=== PATIENT | male | born 1965 | race Caucasian/White ===

== ENCOUNTER 2024-03-28 22:30 | Emergency (ER) | payer OTHER, SELFPAY ==
[2024-03-28 22:33] VITALS: BP 190/107
[2024-03-28 22:54] LABS: % Basophils 0.2 % (0-2); % Eosinophils 0.3 % (0-6); % Immature Granulocytes 0.2 % (0-0.5); % Lymphocytes 30.7 % (20.5-51.1); % Monocytes 9.2 % (1.7-9.3); % Neutrophils 59.4 % (42.2-75.2); Absolute Lymphocytes 1.8 10^3/uL (1.2-3.4); Absolute Monocytes 0.5 10^3/uL (0.1-0.6); Absolute Neutrophils 3.4 10^3/uL (1.4-6.5); Hematocrit 41.3 % (39.0-52.0); Mean Corp Hgb Conc. 33.9 g/dL (33.0-37.0); Mean Corpuscular Hgb 29.5 pg (27.0-31.0); Mean Corpuscular Volume 86.9 fL (80.0-94.0); Mean Platelet Volume 8.7 fL (7.4-10.4); Nucleated Red Blood Cells % 0 % (-); Platelet Count 287 10^3/uL (130-400); Red Blood Cell Count 4.75 10^6/uL (4.70-6.10); Red Cell Dist. Width 12.7 % (11.5-14.5); White Blood Cell Count 5.7 10^3/uL (4.8-10.8)
[2024-03-28 23:11] LABS: ALT (SGPT) 29 U/L (0-50); AST (SGOT) 32 U/L (17-59); Albumin 4.2 g/dl (3.5-5.0); Alkaline Phosphatase 81 U/L (38-126); Blood Urea Nitrogen 19 mg/dl (9-20); Calcium 8.9 mg/dl (8.4-10.2); Carbon Dioxide 27 mmol/L (22-30); Chloride 98 mmol/L (98-107); Glucose 133 mg/dl (70-99); Lipase 71 U/L (23-300); Sodium 132 mmol/L (135-145); Total Bilirubin 0.5 mg/dl (0.2-1.3); Total Protein 7.4 g/dl (6.3-8.2); eGFR > 60.00
--- NOTE | 2024-03-29 03:16 | ED.GENMED ---
History of Present Illness
General
Chief Complaint: Abdominal Pain
Source: patient
Exam Limitations: none
Time Seen by Provider: 03/29/24 02:56
Nursing documentation reviewed up to this point in time: agreed with
History of Present Illness
History of Present Illness:
59-year-old male with a past medical history as noted presents to the ER for evaluation of groin pain. Patient says he has had a mild cough for about 2 weeks. Tonight he had a coughing fit and he felt something pop in his groin and he had pain
immediately. He says he has a palpable mass there. Came to the ER for evaluation. He says he has had an umbilical hernia in the past that was repaired but has never had a hernia in this area. He denies any nausea, vomiting. Regarding his cough
he reports it has been ongoing for 2 weeks mild and nonproductive. No associated shortness of breath. No chest pain. No fevers. No other complaints.
Review of Systems
Review of Systems
All Other Systems: ROS reviewed and negative except as documented in HPI and ROS
Constitutional: Denies fever
Respiratory: Reports cough; Denies trouble breathing
Cardiac: Denies chest pain
ABD/GI: Reports abdominal pain; Denies nausea or vomiting
Musculoskeletal: Denies neck pain or back pain
Phy Exam
Physical Exam
Physical Exam:
General: Awake, alert, oriented x3; appears uncomfortable
Head: Normocephalic, atraumatic
Eyes: Conjunctiva normal
Throat: Airway intact, handling secretions
Neck: Trachea midline, no JVD
Lungs: Clear to auscultation bilaterally, no wheezing, rales, rhonchi
Heart: Regular rate and rhythm, no murmurs, gallops, or rubs
Abd: Soft, non distended, nontender; patient has left inguinal hernia soft but very tender; no induration or skin changes
Neuro: No gross deficits
Extremities: No edema in extremities, equal pulses in all extremities
Scores
Heart Failure Risk
Heart Failure Risk Score: Not Applicable
Heart Score for Chest Pain Patients
STEMI patient?: Not applicable
Withdrawal Assessment of Alcohol
Withdrawal Assessment Completed?: Not applicable
Course
Orders/Labs/Results
Orders:
Orders
03/28/24 22:45
Complete Blood Count/With Diff Urgent
Comprehensive Metabolic Panel Urgent
Lipase Urgent
03/29/24 03:12
HYDROmorphone [Dilaudid] 0.5 mg IV NOW STA
CR Chest - 2 Views Urgent
Comment:
Reason For Exam: cough
03/29/24 03:19
COVID-19 Antigen Urgent
Source: Nasal Swab
Influenza A+B Rapid Molecular Urgent
DIANE Source: Nasal Swab
Specimen Description:
Abnormal Lab Results
03/28/24
22:45
Sodium 132 L mmol/L
(135-145)
Glucose 133 H mg/dl
(70-99)
03/28/24 22:45
03/28/24 22:45
Vital Signs
Initial and Last Documented VS:
Initial Vital Signs
Temp Pulse Resp BP Pulse Ox
36.9 C 95 18 190/107 95
03/28/24 22:33 03/28/24 22:33 03/28/24 22:33 03/28/24 22:33 03/28/24 22:33
Last Documented Vital Signs
Temp Pulse Resp BP Pulse Ox
36.9 C 77 18 170/100 93
03/28/24 22:33 03/29/24 03:30 03/29/24 03:30 03/29/24 03:30 03/29/24 03:30
MDM/Problems Addressed
Differential Diagnosis Includes:
Abdominal/groin pain: Incarcerated hernia
Cough: Pneumonia, bronchitis, COPD
MDM/Problems Addressed:
59-year-old male presents for evaluation of groin pain after coughing with palpable mass in the left inguinal region. Hypertensive otherwise normal vitals. On exam he does have a hernia in the left inguinal region it is soft but tender to the
touch consistent with an incarcerated hernia. Did not tolerate bedside attempted reduction initially. Will treat with pain medication and apply ice pack and then attempt to reduce. He did have labs sent in triage including a CBC and a CMP which
were all unremarkable. Will check a chest x-ray to rule out pneumonia given his cough and swab for COVID and flu.
Hernia was reduced at bedside without issue after pain medication and application of an ice pack for a period of time. His symptoms completely resolved with hernia reduction. His COVID and flu swabs were negative. Chest x-ray reviewed by me
concerning for right lower lobe pneumonia. Plan to treat with antibiotics. Stable for discharge refer to surgery for outpatient follow-up on hernia. Patient comfortable with this plan. All questions answered.
Chronic conditions affecting care:
COPD
*Radiology
Radiology exam reviewed: preliminary read by ED provider
*Pulse Oximetry
Patient hypoxic: no
*Critical Care Note
Total Time (30-74mins, 75-104mins- exclusive of procedures): Not Applicable
Data Reviewed
Source: patient
ED Attending Note
-
Portions of this chart may have been created with voice recognition software.� Occasional wrong word or��sound alike� substitutions may have occurred due to the inherent limitations of voice recognition software.
Discharge Plan
Departure
Discharge Problem:
Inguinal hernia, Pneumonia
Instructions: Pneumonia in adults, Groin hernias
Prescriptions:
New
levofloxacin 750 mg tablet
750 mg PO DAILY Qty: 7 0RF
Interventions
Interventions:
*Risk Screen - Suicide Last Done: 03/28/24 22:33
*General Assessment Last Done: 03/28/24 22:33
*Neglect/Abuse Screening Last Done: 03/28/24 22:33
BJ-Xaxxzq-Fzwpltwibr Assessment Last Done: 03/29/24 03:30
Discharge Date and Time
Print Language: SLOVAK
[2024-03-29] MEDS: DILAUDID 0.5 MG IV (03:17)
[2024-03-29 03:30] VITALS: BP 170/100
[2024-03-29 04:25] LABS: COVID-19 Antigen Negative (Negative)
[2024-03-29] MEDS: LEVAQUIN 750 MG PO (04:52)
== END 2024-03-29 05:31 | disposition home or self-care (01) ==
LOC: EMR 22:30
PROVIDERS: EMERGENCY PHYSICIAN Emergency Medicine
DX: K40.90 Unilateral inguinal hernia, without obstruction or gangrene, not specified as recurrent (principal); J18.9 Pneumonia, unspecified organism; Z11.52 Encounter for screening for COVID-19
CPT/HCPCS: 99284; 96374; 71046; 80053; 83690; 85025; 87502; 87811

== ENCOUNTER 2024-04-16 17:30 | Day surgery (SDC) | payer OTHER, SELFPAY ==
[2024-04-16] VITALS (11 sets, daily range): BP systolic 126–178; BP diastolic 77–103; BMI 33.0
[2024-04-16 12:20] LABS: % Basophils 0.3 % (0-2); % Eosinophils 0.6 % (0-6); % Immature Granulocytes 0.4 % (0-0.5); % Lymphocytes 17.2 % (20.5-51.1); % Monocytes 6.6 % (1.7-9.3); % Neutrophils 74.9 % (42.2-75.2); Absolute Lymphocytes 1.2 10^3/uL (1.2-3.4); Absolute Monocytes 0.5 10^3/uL (0.1-0.6); Absolute Neutrophils 5.3 10^3/uL (1.4-6.5); Hemoglobin 14.7 g/dL (13.0-18.0); Mean Corp Hgb Conc. 34.2 g/dL (33.0-37.0); Mean Corpuscular Hgb 29.2 pg (27.0-31.0); Mean Corpuscular Volume 85.3 fL (80.0-94.0); Nucleated Red Blood Cells % 0 % (-); Platelet Count 339 10^3/uL (130-400); Red Blood Cell Count 5.04 10^6/uL (4.70-6.10); Red Cell Dist. Width 13.6 % (11.5-14.5); White Blood Cell Count 7.1 10^3/uL (4.8-10.8)
[2024-04-16 12:31] LABS: ALT (SGPT) 23 U/L (0-50); AST (SGOT) 25 U/L (17-59); Albumin 4.3 g/dl (3.5-5.0); Alkaline Phosphatase 96 U/L (38-126); Blood Urea Nitrogen 19 mg/dl (9-20); Calcium 9.5 mg/dl (8.4-10.2); Carbon Dioxide 23 mmol/L (22-30); Chloride 103 mmol/L (98-107); Glucose 110 mg/dl (70-99); Potassium 4.5 mmol/L (3.5-5.1); Sodium 136 mmol/L (135-145); Total Bilirubin 0.4 mg/dl (0.2-1.3); Total Protein 7.9 g/dl (6.3-8.2); eGFR > 60.00
--- NOTE | 2024-04-16 13:15 | ED.GENMED ---
History of Present Illness
General
Chief Complaint: Abdominal Pain
Source: patient and records
Exam Limitations: none
Time Seen by Provider: 04/16/24 13:02
History of Present Illness
History of Present Illness:
59yoM with a history of COPD and hypertension presenting via EMS for evaluation of left groin pain. Patient was seen in the ED on 03/29/2024 for a left inguinal hernia. Hernia was able to be reduced and he was discharged with plan for outpatient
general surgery follow-up. Patient unfortunately did not schedule this. He reports intermittent pain in his left groin over the past 2 days. He reports a burning pain in his inguinal region and feels a gurgling sensation. The pain and swelling
seem to be much more severe than last time. Last bowel movement was 2 days ago but he is passing flatus. He is otherwise asymptomatic and denies any fevers, nausea, vomiting, difficulty urinating.
Phy Exam
Physical Exam
Physical Exam:
Appears uncomfortable due to pain, non-toxic
General Physical Exam
General Presentation: well appearing
General age: appears stated age
General Skin: warm and dry
General Habitus: normal
General Mental: alert
ENT Exam
ENT Exam: normocephalic
Pulmonary Exam
Pulmonary Exam: no respiratory distress
Gastrointestinal Exam
Gastrointestinal Exam: soft, non distended and other (Moderate sized L inguinal hernia noted that is firm to touch and exquisitely tender to touch. No overlying skin changes. Supraumbilical also present that is soft and non-tender.)
Neurological Exam
Neurological Exam: alert
Skin Exam
Skin Exam: normal color and warm/dry
Psychiatric Exam
Psychiatric Exam: anxious
Course
Orders/Labs/Results
Orders:
Orders
04/16/24 12:03
CBC/With Diff [Complete Blood Count/With Diff] Urgent
Comprehensive Metabolic Panel Urgent
04/16/24 13:14
Ice Pack-Treatment DIRECTED
Location: L groin
HYDROmorphone [Dilaudid] 0.5 mg IV NOW STA
04/16/24 13:17
Iohexol [Omnipaque] See Protocol PO NOW STA
04/16/24 13:28
CT Abd/pelvis W Iv Cont Urgent
Comment:
Reason For Exam: L inguinal pain/swelling
04/16/24 14:15
HYDROmorphone [Dilaudid] 1 mg IV NOW STA
04/16/24 14:35
SURGICAL CONSULT Urgent
Consulting Provider: Kaleb Mednoza
Was physician already notified: Yes
04/16/24 14:37
CeFAZolin 2 GRAM [Ancef] 2 grams in 10 ml IV NOW
MetroNIDAZOLE 500 MG/100 ML [Flagyl 500 mg] 100 ml IV NOW
04/16/24 14:42
EKG [Electrocardiogram (*1)] Urgent
Reason for Study: PreOp
04/16/24 Dinner
Regular
04/16/24 15:43
Bupivacaine 0.25%Pf/Epinephrin [Sensorcaine-Epi 0.25%-0.0005] 30 ml .ROUTE .STK-MED ONE
Lidocaine Mpf 1% [Xylocaine-Mpf 1% Vial] 30 ml .ROUTE .STK-MED ONE
04/16/24 15:46
Fentanyl Citrate/Pf [Sublimaze] 100 mcg .ROUTE .STK-MED ONE
Midazolam HCl [Versed] 2 mg .ROUTE .STK-MED ONE
04/16/24 15:57
Admit Patient As Directed
Co-Sign Provider:
Level of Care: Post Proc/Surg Recovery
Assign to:: Medical/Surgical
Physician / Group: Reji / DANYELL
Diagnosis: LEFT inguinal hernia
Reason for Overnight Stay: Standard of Care
Code Status As Directed
Resuscitation Status: Full Code
HYDROmorphone [Dilaudid] 0.5 mg IV Q2HPRN PRN
Ketorolac [Toradol] 10 mg IV Q6HPRN PRN
Ondansetron Injectable [Zofran] 4 mg IV Q6HPRN PRN
Oxycodone [Roxicodone] 5 mg PO Q4HPRN PRN
Activity As Directed
Activity Level: Ambulate
Intake/ Output As Directed
Frequency: Per unit guidelines
Vital Signs As Directed
Frequency: Per unit guidelines
PRN Pain Medication Management As Directed
May give lesser potent ordered pain med per pt: Yes
preference::
Protocol:: Medication orders for pain may be administered in a
manner that supports deferring to patient preference
when the pt is:
- Requesting an ordered lesser potent pain medication.
Least to most potent pain medications are defined
as: acetaminophen < NSAID < tramadol < opioids
(morphine, oxycodone, hydromorphone).
- Requesting a lesser dose of the same medication IF
ORDERED.
- Requesting a less intrusive route of administration
if both routes are prescribed by the provider (PO <
IV).
04/16/24 15:58
Pneumatic Compression Sleeves As Directed
Type: Knee high
O2 Therapy [RESP] Routine
Titrate/Wean O2 to maintain O2 sat greater than (%): 90
Rx Incentive Spirometry [RESP] Routine
Frequency: q1h while awake
# of times per hour: 10
DX Deep Vein Thrombosis Video Routine
04/16/24 16:00
Acetaminophen [Tylenol] 650 mg PO Q4HWA
Normosol (Mult Electrolytes) [Normosol-R/Plasmalyte-A] 1,000 ml IV 100 mls/hr
04/17/24 18:00
Enoxaparin Sodium [Lovenox] 40 mg SC QPM
Abnormal Lab Results
04/16/24
12:03
Lymphocytes % 17.2 L %
(20.5-51.1)
Glucose 110 H mg/dl
(70-99)
04/16/24 12:03
04/16/24 12:03
Vital Signs
Initial and Last Documented VS:
Initial Vital Signs
Temp Pulse Resp BP Pulse Ox
97.5 F 92 16 178/98 98
04/16/24 11:45 04/16/24 11:45 04/16/24 11:45 04/16/24 11:45 04/16/24 11:45
Last Documented Vital Signs
Temp Pulse Resp BP Pulse Ox
97.5 F 84 18 143/85 92
04/16/24 11:45 04/16/24 15:15 04/16/24 15:15 04/16/24 15:15 04/16/24 15:15
MDM/Problems Addressed
Differential Diagnosis Includes:
59yoM here with intermittent L groin pain x 2 days. Seen in the ED last month for an inguinal hernia that was able to be reduced. Denies n/v. Last BM 2 days ago. He is hypertensive with otherwise normal vitals. He appears uncomfortable due to
pain. There is a firm moderate-sized left inguinal hernia present on exam that is exquisitely tender to touch. No skin changes. Differential diagnosis includes but limited to: Incarcerated hernia, obstruction
Initial ED plan: Labs obtained in triage are unremarkable. I was unable to reduce hernia during initial exam. Will check CT abdomen. Ice and Dilaudid ordered for pain. Will reattempt hernia reduction and consult general surgery.
*Critical Care Note
Total Time (30-74mins, 75-104mins- exclusive of procedures): Not Applicable
Update Note
Update Note:
CT shows a left inguinal hernia which contains a loop of colon. No evidence of obstruction on imaging. I attempted to reduce hernia after pain medication although hernia is still unable to be reduced and procedure is limited due to ongoing severe
pain. Patient was evaluated by Dr. Mendoza at bedside. Patient taken directly to the OR for hernia repair.
ED Attending Note
-
Portions of this chart may have been created with voice recognition software.� Occasional wrong word or��sound alike� substitutions may have occurred due to the inherent limitations of voice recognition software.
Discharge Plan
Departure
Patient Disposition: Admit
Date of Disposition: 04/16/24
Time of Disposition: 14:54
Presentation/result/management discussed w/ accepting MD/DO: Dr. Mendoza
Discharge Problem:
Incarcerated left inguinal hernia
Prescriptions:
No Action
amlodipine-benazepril 5-20 mg capsule
1 cap PO DAILY
Anoro Ellipta 62.5-25 mcg/actuation Blister With Device
1 inh INHALATION R DAILY
Referrals:
Luis Grace MD [Family Provider] -
Interventions
Interventions:
*Risk Screen - Suicide Last Done: 04/16/24 11:45
*Neglect/Abuse Screening Last Done: 04/16/24 11:45
*Nursing Disposition Last Done: 04/16/24 15:24
YC-Zadxfy-Wjgxcrpetb Assessment Last Done: 04/16/24 14:29
Discharge Date and Time
Discharge Date/Time: 04/16/24 15:24
Print Language: CHINESE
[2024-04-16] MEDS: DILAUDID 0.5 MG IV (13:28)
[2024-04-16] MEDS: DILAUDID 1 MG IV (14:36)
--- NOTE | 2024-04-16 14:38 | HPS.HSE ---
Family Physician
-
Family Physician: Luis Grace
Chief Complaint
-
LEFT groin pain
History of Present Illness
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 Mr. Arredondo presents with LEFT groin pain and discomfort. He states that he was first made aware of an inguinal
hernia back in mid March during which time he presented to the ED and was diagnosed with a reducible LEFT inguinal hernia. He was instructed to follow-up with a General Surgeon, which he neglected to do. He re-presents with LEFT groin pain and
discomfort. He believes his hernia popped back out approximately 2 days ago. He denies any nausea or vomiting. Last bowel movement was a few days ago. He continues to pass flatus. He reports a burning discomfort. Attempts at reduction in the
ER by the PA were unsuccessful. CT scan of the abdomen pelvis demonstrates a large indirect LEFT inguinal hernia containing a loop of sigmoid colon.
Of note, he reports recent pneumonias and a chronic cough. He is unable to walk up and down a flight of stairs without experiencing shortness of breath. He denies any heart attacks or strokes.
Medical History
Past Medical History
Past Medical History: Reports COPD, HTN and Other (Obesity)
Past Surgical History: Reports Orthopedic (RIGHT hip replacement c/b infection s/p revisions)
Social History
Tobacco: Smoker (1/2 PPD)
Alcohol: None
Drug: None
Family History
Family History: Not pertinent
Allergies / Home Medications
Allergies reflects when Allergies were last updated in [facility].
Home Medications with original date entered in [employer] [facility]
Allergy/Medication List:
NKDA
Review of Systems
-
A 12 point ROS was completed and negative except as noted: Yes
Physical Exam
Vital Signs
Vital Signs
Temp Pulse Resp BP Pulse Ox
97.5 F 92 16 178/98 98
04/16/24 11:45 04/16/24 11:45 04/16/24 11:45 04/16/24 11:45 04/16/24 11:45
Physical Exam
General: Well Developed, Well Nourished and Pain
HEENT: NormoCephalic and Anicteric
Respiratory: Wheezes and Non Labored Respirations
Cardiac: Regular Rhythm
GI: Soft, Non Tender, Non Distended and Other (Obese, palpable epigastric hernia, partially reducible, palpable LEFT inguinal hernia, indirect, moderate size, slightly firm, no redness, partially reducible, significant pain with exam)
Skin: Warm and Dry
Neuro: Nonfocal/grossly intact
Laboratory Results
-
04/16/24 12:03
04/16/24 12:03
Laboratory Results
Total Bilirubin 0.4 mg/dl (0.2-1.3) 04/16/24 12:03
AST 25 U/L (17-59) 04/16/24 12:03
ALT 23 U/L (0-50) 04/16/24 12:03
Alkaline Phosphatase 96 U/L (38-126) 04/16/24 12:03
Data Reviewed
-
CT Scan: Image Personally Visualized and interpreted and Report Reviewed by me
Lab Data: Labs Reviewed by me
Old Records: Reviewed
Impression/Plan
-
IMPRESSION:
Patient is a 59 yo M p/w an incarcerated LEFT inguinal hernia
The natural history and pathophysiology of inguinal hernias was briefly discussed. Options for management were reviewed. Given his significant pain, incarcerated nature, and presence of bowel within the hernia recommend operative repair. Patient
agrees to proceed.
Plan for an open LEFT inguinal hernia repair with mesh. The procedure itself, as well as the risks, benefits, and alternatives was discussed. Specifically, we discussed the risks of bleeding, infection, injury to surrounding structures (bowel,
nerves, blood supply the testicle, vas deferens), chronic groin discomfort, urinary retention, and recurrence. Typical postprocedural recovery including pain management and the need for 4 weeks no heavy lifting or strenuous activities was
discussed. All questions answered. Consent signed.
PLAN:
-- Open LEFT inguinal hernia repair with mesh
-- NPO, IVF
-- Abx: Ancef and Flagyl
-- Pain control: Tylenol, Toradol, Oxycodone
-- Admit post-operatively
--- NOTE | 2024-04-16 14:50 | W.SUR.PREOP ---
Pre-Operative Surgical Note
-
I have examined this patient prior to the performance of the scheduled procedure.
The patient's condition is unchanged from the time of the current History and
Physical and the patient is able to undergo the scheduled procedure.
[2024-04-16] MEDS: ANCEF 10 IV (14:56)
--- NOTE | 2024-04-16 17:23 | W.IMMPOSTOP ---
Surgical Immed Post Op Note
-
Primary Surgeon: Reji
Assisting Surgeon: None
Pre-op Diagnosis: Incarcerated LEFT inguinal hernia
Post-op Diagnosis: Incarcerated LEFT inguinal hernia
Procedure Performed: Open LEFT inguinal hernia repair with mesh
Anesthesia Type: MAC --> General
Specimen / Cultures: None
Estimated Blood Loss: 7 cc
Complications: None
Operative Findings:
1. Small cord lipoma, moderate indirect inguinal hernia (slider, bowel viable)
2. Marya mesh repair with Bard reg weight flat mesh
[2024-04-16] MEDS: TYLENOL PO (18:10)
[2024-04-16] MEDS: NORMOSOL-R/PLASMALYTE-A 1000 IV (18:12)
--- NOTE | 2024-04-16 19:03 | SUR.PHASEI ---
vss. encouraged coughing and deep breathing. very lethargic, patient left dentures at home. speech difficult to understand. Denies pain - feels 'a lot better than preop'. Requires O2 at 4l/m nc to keep sats above 92.
[2024-04-16] MEDS: TYLENOL 650 MG PO (20:21)
--- NOTE | 2024-04-16 21:24 | PTCARENOTE ---
Addendum entered by Edwige Bobby RN 04/17/24 02:23:
NATE Gore made aware of stimulant use.
Original Note:
Pt told this RN he uses methamphetamines and last use was Monday. Pt states he does not have any drugs or medications here in room. Pt educated not to use anything from outside of the hospital. Pt aware and states he did not bring anything in.
[2024-04-17] MEDS: TYLENOL 650 MG PO ×4 (00:05→15:58)
--- NOTE | 2024-04-17 02:21 | PTCARENOTE ---
Pt arrive to [facility] at 1840 from PACU. Pt has incision on Left groin [employer] with glue. Noted sore on tip of penis with no drainage. Provider Bao notified. Pt oriented to room and call wasserman. Bed locked and in lowest position. Pt on 2L NC and
encouraged to use IS and take deep breaths. Care ongoing.
[2024-04-17 03:21] VITALS: BP 129/90
[2024-04-17] MEDS: NORMOSOL-R/PLASMALYTE-A 1000 IV (04:11)
[2024-04-17 07:25] VITALS: BP 149/87
--- NOTE | 2024-04-17 08:37 | W.PN.GS2 ---
Today's Communication / Plan
-
-- OOB/ambulate, resp consult for ambulatory O2 needs
-- CM consult for dispo planning
Assessment / Plan
-
Patient is a 59 yo M POD#1 s/p open LEFT inguinal hernia repair with mesh
AVSS
Recovering well. No major postoperative concerns. Chronic respiratory insufficiency due to COPD and recent URI/pneumonia (per patient report). Chronic cough. Supplemental O2 needed due to above and likely combined with a component of atelectasis
from surgery. Pain overall well-controlled. Okay for discharge today from a surgical perspective pending respiratory status and dispo planning.
-- Regular diet
-- Pain control: Tylenol, Toradol, Tramadol
-- HLIV
-- Home meds
-- DVT: Lovenox
-- OOB/ambulate, resp consult for ambulatory O2 needs
-- CM consult for dispo planning
Subjective Data
-
Date of Service: April 17, 2024
Pain overall well-controlled. Denies any chest pain or shortness of breath. Does report coughing and sneezing all night. Passing flatus, no BM.
Objective Data
-
Intake and Output
04/16/24 04/17/24 04/18/24
06:59 06:59 06:59
Intake Total 600 / 600
Output Total 800 / 800
Balance -200 / -200
Intake:
Oral fluids 500 / 500
IV fluids (Total) 100 / 100
normosol 100 / 100
Output:
Urine, Voided 800 / 800
Vital Signs
Temp Pulse Resp BP Pulse Ox
98.0 F 83 18 149/87 89
04/17/24 07:25 04/17/24 07:25 04/17/24 07:25 04/17/24 07:25 04/17/24 07:25
Lab Results
04/16/24 12:03
04/16/24 12:03
Calcium 9.5 mg/dl (8.4-10.2) 04/16/24 12:
Total Bilirubin 0.4 mg/dl (0.2-1.3) 04/16/24 12:
AST 25 U/L (17-59) 04/16/24 12:
ALT 23 U/L (0-50) 04/16/24 12:
Alkaline Phosphatase 96 U/L (38-126) 04/16/24 12:03
Total Protein 7.9 g/dl (6.3-8.2) 04/16/24 12:
Albumin 4.3 g/dl (3.5-5.0) 04/16/24 12:03
Physical Exam
-
Gen: NAD
Abd: soft, mild tenderness, ND, non-peritoneal, incision c/d/i - no erythema, ecchymosis or drainage
Patient has a veliz catheter: No
Patient has a central line: No
[2024-04-17] MEDS: NICODERM TRANSDERMAL 14 MG TRANSDERM (08:39)
[2024-04-17 11:32] VITALS: BP 140/92
[2024-04-17] MEDS: TYLENOL PO (12:00)
--- NOTE | 2024-04-17 12:23 | CM ---
Addendum entered by Rubia Cortez 04/17/24 15:54:
Spoke with Chanel from [facility] - received order/clinical info
[employer] will deliver O2 to pt by 6:30PM
Pt, RN updated
Pt instructed to answer call when hook up driver delivers additional O2 this PM - pt aware
Plan - home with home O2 when available
Addendum entered by Rubia Cortez 04/17/24 15:22:
Home O2 assessment completed - qualifies for home O2
Spoke with pt - no preference for DME
Spoke with Chanel from [facility] can accept
Order form completed - TT sent to Dr Mendoza requesting signature
Will fax clinicals, order form and face sheet to Chanel at [facility] when order form completed
Plan - home with home O2 when available
Original Note:
Met with pt at bedside
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 Shares kitchen and living area with other roommates; no steps to enter, 13 steps to bedroom
Independent at baseline, no device to ambulate, unemployed
DME- available in home rolling walker, single pint cane, commode
SNF - denies past hx
HH - has had in past - unsure of agency
Has ride at d/c
PCP = Luis Grace
Pharm - [facility]
Pt reports he smokes, admits to 1/2 pack per day
Difficult to wean off O2 - for home oxygen assessment - pt aware
Plan -anticipate home no needs pending home oxygen assessment
[2024-04-17 14:48] VITALS: BP 164/93
--- NOTE | 2024-04-17 15:31 | W.PN.SURGUPD ---
Surgical Update
Surgical Update
Patient has been evaluated by respiratory care. Patient qualifies for home O2. Home O2 order signed. Instructed on the importance of smoking cessation especially no smoking while using home O2. Instructed to obtain a truss/hernia belt to help
stabilize his repair especially with his chronic cough and sneezing. All questions answered. Stable for discharge.
== END 2024-04-17 18:45 | disposition home or self-care (01) ==
LOC: SDS 17:30
PROVIDERS: Emergency Medicine; ATTENDING PHYSICIAN Surgery; EMERGENCY PHYSICIAN Emergency Medicine; FAMILY PHYSICIAN Family Medicine
DX: K40.30 Unilateral inguinal hernia, with obstruction, without gangrene, not specified as recurrent (principal); Z92.83 Personal history of failed moderate sedation; Z72.0 Tobacco use
CPT/HCPCS: 49507; 74177; 80053; 85025; 93005; 96374; 96375; 96376; 99285; C1781; Q9967

== ENCOUNTER 2024-05-19 01:48 | Inpatient (IN) | payer OTHER, SELFPAY ==
[2024-05-18 16:12] VITALS: BP 142/89
--- NOTE | 2024-05-18 20:47 | ED.GENMED ---
History of Present Illness
<Madhuri Vidal PA-C - Last Filed: 05/19/24 03:28>
General
Chief Complaint: Skin Problem
Source: patient
Exam Limitations: none
Time Seen by Provider: 05/18/24 20:02
Nursing documentation reviewed up to this point in time: agreed with
History of Present Illness
History of Present Illness:
Patient is a 59-year-old man with history hypertension, IV drug abuse presenting to the emergency department for evaluation of atraumatic redness the pain of right second toe. Patient states he woke up with what appeared to be a bite shonna on his
right second toe yesterday morning which became red yesterday evening. This morning he reports significant worsening in redness and swelling of his right second toe now spreading up his right foot. He describes a 'throbbing 'pain.
He denies any fevers, chills, chest pain, shortness of breath.
He has history of IV drug abuse.
Review of Systems
<Madhuri Vidal PA-C - Last Filed: 05/19/24 03:28>
Review of Systems
Allergies reviewed?: Yes
All Other Systems: ROS reviewed and negative except as documented in HPI and ROS
Phy Exam
<Madhuri Vidal PA-C - Last Filed: 05/19/24 03:28>
Physical Exam
Physical Exam:
Vitals: Mildly tachycardic on arrival, hypertensive, afebrile
General: Patient is in moderate distress due to pain.
Skin: Warm and dry, no rashes or lesions
Head: Normocephalic, atraumatic
Eyes: Sclera nonicteric. EOMs intact. No nystagmus.
Throat: Protecting airway
Neck: Normal ROM, no cervical spine tenderness, no meningismus
Cardiac: Tachycardic, normal rhythm, no murmurs.
Pulm: Normal respiratory effort, no wheezes, rales, rhonchi heard on exam.
Abdomen: No abdominal tenderness.
Extremities: Erythema and edema of right second digit expanding to dorsal aspect of right foot. Significant tenderness right second digit. Small abrasion/bite shonna noted to right second digit. Cap refill WNL. Palpable DP pulse of RLE.
Neuro: AAOx3. CN II-XII intact. No focal neurologic deficits.
Psychiatric: Normal affect.
Course
<Madhuri Vidal PA-C - Last Filed: 05/19/24 03:28>
Orders/Labs/Results
Orders:
Orders
05/18/24 20:23
Ketorolac [Toradol] 15 mg IV NOW STA
Toes 2 Views, Right [CR Toe(s) Min 2 Vw Right] Urgent
Comment:
Reason For Exam: Infection right second toe
05/18/24 20:59
Complete Blood Count/With Diff Urgent
Comprehensive Metabolic Panel Urgent
05/18/24 22:50
HYDROmorphone [Dilaudid] 0.5 mg IV NOW STA
05/19/24 00:28
Vancomycin [Vancocin] 2,000 mg 0.9% Sodium Chloride 500 ml [Nss] 500 ml IV NOW
05/19/24 01:41
Admit/Transfer Patient As Directed
Co-Sign Provider:
Level of Care: Inpatient admission
Assign to:: Medical/Surgical
Physician / Group: Shubham
Diagnosis: R Foot Cellulitis
Reason for Hospitalization: R Foot Cellulitis
Expected length of stay greater than two midnights?: Yes
ELOS- Estimated Length of Stay in days: 2
I certify the patient meets the requirements for IP care: Yes
Code Status As Directed
Resuscitation Status: Full Code
PRN Pain Medication Management As Directed
May give lesser potent ordered pain med per pt: Yes
preference::
Protocol:: Medication orders for pain may be administered in a
manner that supports deferring to patient preference
when the pt is:
- Requesting an ordered lesser potent pain medication.
Least to most potent pain medications are defined
as: acetaminophen < NSAID < tramadol < opioids
(morphine, oxycodone, hydromorphone).
- Requesting a lesser dose of the same medication IF
ORDERED.
- Requesting a less intrusive route of administration
if both routes are prescribed by the provider (PO <
IV).
05/19/24 01:59
Acetaminophen [Tylenol] 650 mg PO Q4HPRN PRN
HYDROmorphone [Dilaudid] 0.5 mg IV Q4HPRN PRN
Ipratropium/Albuterol Sulfate [Duoneb] 3 ml INH R Q4HPRN PRN
Ketorolac [Toradol] 15 mg IV Q6HPRN PRN
VANCOMYCIN Pharmacy to Dose [VANCOCIN Pharmacy to Dose] 1 each Pharmacy To Prepare [Call Pharmacy To Prepare] 0 ml IV PER PROTOCOL
05/19/24 01:59
Activity As Directed
Activity Level: Ambulate
With Assistance
I/O [Intake/ Output] As Directed
Frequency: Per unit guidelines
Vital Signs As Directed
Frequency: Per unit guidelines
Oxygen Therapy [O2 Therapy] [RESP] Routine
Titrate/Wean O2 to maintain O2 sat greater than (%): 94
DX Deep Vein Thrombosis Video Routine
05/19/24 Breakfast
Regular
At Your Request: Full Participation
Basic Metabolic Panel IN AM
Complete Blood Count/No Diff IN AM
05/19/24 08:00
Amlodipine Besylate/Benazepril [Lotrel 5 mg/20 mg] 1 capsule PO DAILY
05/19/24 18:00
Enoxaparin Sodium [Lovenox] 40 mg SC QPM
Abnormal Lab Results
05/18/24
20:59
Absolute Monos (auto) 1.2 H 10^3/uL
(0.1-0.6)
Monocytes % 12.0 H %
(1.7-9.3)
Chloride 97 L mmol/L
(98-107)
BUN 28 H mg/dl
(9-20)
Glucose 100 H mg/dl
(70-99)
05/18/24 20:59
05/18/24 20:59
Vital Signs
Initial and Last Documented VS:
Initial Vital Signs
Temp Pulse Resp BP Pulse Ox
98.9 F 102 18 142/89 98
05/18/24 16:12 05/18/24 16:12 05/18/24 16:12 05/18/24 16:12 05/18/24 16:12
Last Documented Vital Signs
Temp Pulse Resp BP Pulse Ox
98.9 F 96 22 132/80 90
05/18/24 16:12 05/18/24 20:50 05/18/24 20:50 05/19/24 02:00 05/19/24 01:14
<Rocael Archibald MD - Last Filed: 05/18/24 21:16>
Orders/Labs/Results
Orders:
Orders
05/18/24 20:23
Ketorolac [Toradol] 15 mg IV NOW STA
Toes 2 Views, Right [CR Toe(s) Min 2 Vw Right] Urgent
Comment:
Reason For Exam: Infection right second toe
05/18/24 20:59
Complete Blood Count/With Diff Urgent
Comprehensive Metabolic Panel Urgent
05/18/24 22:50
HYDROmorphone [Dilaudid] 0.5 mg IV NOW STA
05/19/24 00:28
Vancomycin [Vancocin] 2,000 mg 0.9% Sodium Chloride 500 ml [Nss] 500 ml IV NOW
05/19/24 01:41
Admit/Transfer Patient As Directed
Co-Sign Provider:
Level of Care: Inpatient admission
Assign to:: Medical/Surgical
Physician / Group: Shubham
Diagnosis: R Foot Cellulitis
Reason for Hospitalization: R Foot Cellulitis
Expected length of stay greater than two midnights?: Yes
ELOS- Estimated Length of Stay in days: 2
I certify the patient meets the requirements for IP care: Yes
Code Status As Directed
Resuscitation Status: Full Code
PRN Pain Medication Management As Directed
May give lesser potent ordered pain med per pt: Yes
preference::
Protocol:: Medication orders for pain may be administered in a
manner that supports deferring to patient preference
when the pt is:
- Requesting an ordered lesser potent pain medication.
Least to most potent pain medications are defined
as: acetaminophen < NSAID < tramadol < opioids
(morphine, oxycodone, hydromorphone).
- Requesting a lesser dose of the same medication IF
ORDERED.
- Requesting a less intrusive route of administration
if both routes are prescribed by the provider (PO <
IV).
05/19/24 01:59
Acetaminophen [Tylenol] 650 mg PO Q4HPRN PRN
HYDROmorphone [Dilaudid] 0.5 mg IV Q4HPRN PRN
Ipratropium/Albuterol Sulfate [Duoneb] 3 ml INH R Q4HPRN PRN
Ketorolac [Toradol] 15 mg IV Q6HPRN PRN
VANCOMYCIN Pharmacy to Dose [VANCOCIN Pharmacy to Dose] 1 each Pharmacy To Prepare [Call Pharmacy To Prepare] 0 ml IV PER PROTOCOL
05/19/24 01:59
Activity As Directed
Activity Level: Ambulate
With Assistance
I/O [Intake/ Output] As Directed
Frequency: Per unit guidelines
Vital Signs As Directed
Frequency: Per unit guidelines
Oxygen Therapy [O2 Therapy] [RESP] Routine
Titrate/Wean O2 to maintain O2 sat greater than (%): 94
DX Deep Vein Thrombosis Video Routine
05/19/24 Breakfast
Regular
At Your Request: Full Participation
Basic Metabolic Panel IN AM
Complete Blood Count/No Diff IN AM
05/19/24 08:00
Amlodipine Besylate/Benazepril [Lotrel 5 mg/20 mg] 1 capsule PO DAILY
05/19/24 18:00
Enoxaparin Sodium [Lovenox] 40 mg SC QPM
Abnormal Lab Results
05/18/24
20:59
Absolute Monos (auto) 1.2 H 10^3/uL
(0.1-0.6)
Monocytes % 12.0 H %
(1.7-9.3)
Chloride 97 L mmol/L
(98-107)
BUN 28 H mg/dl
(9-20)
Glucose 100 H mg/dl
(70-99)
05/18/24 20:59
05/18/24 20:59
Vital Signs
Initial and Last Documented VS:
Initial Vital Signs
Temp Pulse Resp BP Pulse Ox
98.9 F 102 18 142/89 98
05/18/24 16:12 05/18/24 16:12 05/18/24 16:12 05/18/24 16:12 05/18/24 16:12
Last Documented Vital Signs
Temp Pulse Resp BP Pulse Ox
98.9 F 96 22 132/80 90
05/18/24 16:12 05/18/24 20:50 05/18/24 20:50 05/19/24 02:00 05/19/24 01:14
<Madhuri Vidal PA-C - Last Filed: 05/19/24 03:28>
MDM/Problems Addressed
Differential Diagnosis Includes:
Not limited to: Cellulitis, abscess, insect bite, gouty arthritis, osteomyelitis, etc.
MDM/Problems Addressed:
Patient is a 59-year-old male presenting with cellulitis of right second digit with surrounding erythema and edema of right foot. No systemic symptoms including fever, chills, vomiting. Patient mildly tachycardic and hypertensive on arrival. He
is afebrile. Physical exam as above. Patient has an obvious cellulitis of right second digit with mild abrasion although no fluctuance or purulent drainage. He has a normal neurovascular exam of right foot and digits. Will send basic labs and
check x-ray of affected digit. Will give IV Toradol for pain and reassess.
Update: Labs without clinically significant abnormalities. There is no leukocytosis or left shift. X-ray shows no acute findings. Patient does not meet sepsis criteria. Ultimately�suspect cellulitis and given history of IV drug use plan to cover
for MRSA. Unable to obtain wound culture as there is no purulent drainage or fluctuance. On reassessment�patient remains writhing in pain despite IV Toradol and IV Dilaudid. At this point�will admit patient for cellulitis and intractable pain.
Will give IV vancomycin. Patient accepted to hospitalist service in stable condition.
Chronic conditions affecting care:
IV drug abuse
Acute Exacerbation and/or Progression of Chronic Illness:
N/A
<Madhuri Vidal PA-C - Last Filed: 05/19/24 03:28>
*Radiology
Radiology exam reviewed: preliminary read by ED provider (X-ray reviewed by wy-no acute findings)
*Pulse Oximetry
Patient hypoxic: no
*EKG
Interpreted by ED Provider?: NA
*Magnet Valve Assembler Interpretation
Rate: Magnet Valve Assembler- N/A
*Critical Care Note
Total Time (30-74mins, 75-104mins- exclusive of procedures): Not Applicable
<Madhuri Vidal PA-C - Last Filed: 05/19/24 03:28>
Patient Management
Discussion with other providers: Hospitalist
Escalation/DeEscalation of care consider admission/obs:
Admit for IV antibiotics, pain control
ED Attending Note
<Madhuri Vidal PA-C - Last Filed: 05/19/24 03:28>
-
Portions of this chart may have been created with voice recognition software.� Occasional wrong word or��sound alike� substitutions may have occurred due to the inherent limitations of voice recognition software.
<Rocael Archibald MD - Last Filed: 05/18/24 21:16>
ED Attending Note
Patient seen and examined by attending physician: Yes
I performed the substantive portion of visit, reviewed & personally made and approve the management plan that is documented in note by myself or YESICA.: Yes
ED Attending Note:
Erythema and pain to the right second toe. Started 2 days ago. No trauma. Pain is severe per the patient.
On exam there is diffuse erythema to the right second toe with a small open wound approximately/dorsally. No drainage at this time. The tip has good circulation. Good capillary refill. Very minimal erythema that extends into the distal foot at
this location.
Impression is local cellulitis. Possible insect bite although unlikely. Will check labs and x-ray. If all stable reasonable for outpatient antibiotic coverage. Will cover with Bactrim
Discharge Plan
Departure
Patient Disposition: Admit
Date of Disposition: 05/18/24
Time of Disposition: 23:58
Presentation/result/management discussed w/ accepting MD/DO: Hospitalist
Discharge Problem:
Cellulitis of second toe of right foot
Interventions
Interventions:
*Risk Screen - Suicide Last Done: 05/18/24 16:12
*General Assessment Last Done: 05/18/24 20:50
*Neglect/Abuse Screening Last Done: 05/18/24 16:12
*ED- Fall Risk Assessment Last Done: 05/18/24 20:50
*ED COVID-19 Vaccine History Last Done: 05/18/24 20:50
ED-Skin Assessment Last Done: 05/18/24 20:50
[2024-05-18 20:50] VITALS: BP 136/91
[2024-05-18] MEDS: TORADOL 15 MG IV (21:04)
[2024-05-18 21:13] LABS: % Basophils 0.3 % (0-2); % Eosinophils 0.4 % (0-6); % Immature Granulocytes 0.3 % (0-0.5); Absolute Lymphocytes 2.1 10^3/uL (1.2-3.4); Absolute Monocytes 1.2 10^3/uL (0.1-0.6); Absolute Neutrophils 6.3 10^3/uL (1.4-6.5); Hematocrit 41.2 % (39.0-52.0); Hemoglobin 14.2 g/dL (13.0-18.0); Mean Corp Hgb Conc. 34.5 g/dL (33.0-37.0); Mean Corpuscular Hgb 28.6 pg (27.0-31.0); Mean Corpuscular Volume 82.9 fL (80.0-94.0); Mean Platelet Volume 8.7 fL (7.4-10.4); Nucleated Red Blood Cells % 0 % (-); Platelet Count 359 10^3/uL (130-400); Red Blood Cell Count 4.97 10^6/uL (4.70-6.10); Red Cell Dist. Width 13.3 % (11.5-14.5); White Blood Cell Count 9.6 10^3/uL (4.8-10.8)
[2024-05-18 21:34] LABS: ALT (SGPT) 33 U/L (0-50); AST (SGOT) 33 U/L (17-59); Alkaline Phosphatase 103 U/L (38-126); Blood Urea Nitrogen 28 mg/dl (9-20); Calcium 9.2 mg/dl (8.4-10.2); Carbon Dioxide 30 mmol/L (22-30); Chloride 97 mmol/L (98-107); Glucose 100 mg/dl (70-99); Potassium 4.1 mmol/L (3.5-5.1); Sodium 136 mmol/L (135-145); Total Bilirubin 0.4 mg/dl (0.2-1.3); Total Protein 7.9 g/dl (6.3-8.2); eGFR > 60.00
[2024-05-18 21:42] VITALS: BP 153/93
[2024-05-18 22:01] VITALS: BP 122/92
[2024-05-18] MEDS: DILAUDID 0.5 MG IV (22:56)
[2024-05-18 23:00] VITALS: BP 122/94
[2024-05-18 23:55] VITALS: BMI 27.0
[2024-05-19] VITALS (13 sets, daily range): BP systolic 111–146; BP diastolic 70–89; BMI 30.1
[2024-05-19] MEDS: VANCOCIN 540 MG IV (00:36)
--- NOTE | 2024-05-19 01:43 | HPS.HSE ---
Family Physician
-
Family Physician: * NONE
Chief Complaint
-
Foot Pain / redness
History of Present Illness
Patient is a 59y M with PMH significant for COPD, IVDA and recent inguinal hernia repair who presents to ED complaining of R foot pain, swelling and redness. Patient states that symptoms started evening and woke him from sleep at that
time. He states that he felt 'like something bit me'. He has noted increasing pain, swelling and redness since that time. He reports seeing 'pus' from the R 2nd toe at some point. He presented to the ED for further evaluation.
Patient denies any fevers / chills, N/V/D or other current complaints.
Patient states that he uses methamphetamines - usually nasal or IV. He states that his most recent use was bout a week ago. He denies any injections into the foot / digits.
Medical History
Past Medical History
Past Medical History: Reports Other
Additional Past Medical History:
Hypertension
COPD
Past Surgical History: Reports Other
Additional Past Surgical History:
Left Inguinal hernia Repair (04/2024)
Bilateral RONDA
L3-4 Laminectomy and Fusion
Social History
Tobacco: Smoker (Current every day smoker)
Alcohol: None
Drug: Other (Methamphetamines - nasal / IV.)
Family History
Family History: Not pertinent
Allergies / Home Medications
Allergies reflects when Allergies were last updated in [facility].
Home Medications with original date entered in [facility]
Allergy/Medication List:
Allergies
Allergy/AdvReac Type Severity Reaction Status Date / Time
No Known Allergies Allergy Verified 05/18/24 16:11
Home Medications
amlodipine 5 mg-benazepril 20 mg capsule 1 cap PO DAILY 04/16/24
Review of Systems
-
History Source: Patient
A 12 point ROS was completed and negative except as noted: Yes
Constitutional: Denies Fever or Chills
Respiratory: Denies Cough or Trouble Breathing
Cardiac: Denies Chest Pain or Palpitations
Abdomen/GI: Denies Abdominal Pain, Nausea, Vomiting or Diarrhea
Musculoskeletal: Reports Joint Pain and Edema
Skin: Reports Other (Redness)
Neurological: Denies Headache
Psych: Denies Depression or Anxiety
Physical Exam
Vital Signs
Vital Signs
Temp Pulse Resp BP Pulse Ox
98.9 F 96 22 139/89 94
05/18/24 16:12 05/18/24 20:50 05/18/24 20:50 05/19/24 00:00 05/18/24 22:42
Physical Exam
General: Other (59y M in moderate distress / calling out due to pain.)
HEENT: Moist mucous membranes and PERRLA
Respiratory: Clear; No Wheezes, Rales or Rhonchi
Cardiac: S1/S2 and Regular Rhythm; No Murmur
GI: Soft, Non Tender, Non Distended and Normal Bowel Sounds
Musculoskeletal: No Clubbing, No Cyanosis and Other (1+ edema of the R foot.)
Skin: Other (Erythema / edema centered on the R 2nd digit. Small wound dorsum of the 2nd digit without bleeding / discharge. Significant tenderness. Some extension of erythema into the dorsum of the foot. Does not extend beyond the ankle.)
Laboratory Results
-
05/18/24 20:59
05/18/24 20:59
Laboratory Results
Total Bilirubin 0.4 mg/dl (0.2-1.3) 05/18/24 20:59
AST 33 U/L (17-59) 05/18/24 20:59
ALT 33 U/L (0-50) 05/18/24 20:59
Alkaline Phosphatase 103 U/L (38-126) 05/18/24 20:59
Impression/Plan
-
A/P: Patient is a 59y M with PMH significant for COPD, HTN and IVDA who presents to ED complaining of R foot pain, swelling and redness.
R Foot Cellulitis
- Admit for further evaluation and treatment.
- Continue IV vancomycin and follow for changes in exam.
- Supportive care including pain control.
- Follow for clinical improvement.
Benign Hypertension
- Stable. Continue amlodipine / benazepril.
COPD
- Stable. Discharged after herniorrhaphy on home O2.
- Nebs PRN.
- Monitor for dyspnea, hypoxemia, etc.
- Encourage smoking cessation.
IVDA - Amphetamine Use Disorder
- Most recent use about one week ago per patient.
- He denies any opioid use history. Denies injecting into feet / digits.
DVT Prophylaxis: Lovenox
Code Status: Full
[2024-05-19] MEDS: DILAUDID 0.5 MG IV ×3 (02:33→16:52)
[2024-05-19 06:21] LABS: Hematocrit 40.5 % (39.0-52.0); Hemoglobin 14.1 g/dL (13.0-18.0); Mean Corp Hgb Conc. 34.8 g/dL (33.0-37.0); Mean Corpuscular Hgb 28.9 pg (27.0-31.0); Mean Platelet Volume 9.4 fL (7.4-10.4); Platelet Count 374 10^3/uL (130-400); Red Blood Cell Count 4.88 10^6/uL (4.70-6.10); Red Cell Dist. Width 13.6 % (11.5-14.5); White Blood Cell Count 10.1 10^3/uL (4.8-10.8)
--- NOTE | 2024-05-19 06:48 | W.PN.HOSP.TC ---
Today's Communication/Plan
-
see a/p
Assessment / Plan
Assessment / Plan
Physical Exam
General: Mild moderate distress d/t pain
HEENT: Moist mucous membranes and PERRLA
Respiratory: Clear; No Wheezes, Rales or Rhonchi
Cardiac: S1/S2 and Regular Rhythm; No Murmur
GI: Soft, Non Tender, Non Distended and Normal Bowel Sounds
Musculoskeletal: No Clubbing, No Cyanosis
Skin: Right foot swelling erythema most pronounced at 2nd toe with clotted puncture wound noted. tender
Neuro: AOx3 conversant coherent
Rt Foot Cellulitis 2nd toe wound 05/19/24
A/P: Patient is a 59y M with PMH significant for COPD, HTN and IVDA who presents to ED complaining of R foot pain, swelling and redness.
R Foot Cellulitis
- IV vanc switched to cefazolin w/ neg MRSA screen
- Supportive care including pain control.
- Follow for clinical improvement.
- Podiatry eval requested
Benign Hypertension
- Stable. Continue amlodipine / benazepril.
COPD
Current Smoker
- Discharged after herniorrhaphy on home O2.
-stable respiratory status on room air
- Nebs PRN.
- Monitor for dyspnea, hypoxemia, etc.
- Encouraged smoking cessation.
-Nicotine supplementation
IVDA - Amphetamine Use Disorder
- Most recent use about one week ago per patient.
- He denies any opioid use history. Denies injecting into feet / digits.
DVT Prophylaxis: Lovenox
Code Status: Full
I spent a total of 50 minutes with the patient or on the floor. More than 50% of this time involved counseling and coordination of care.
Anticipated Discharge: 24 - 48 hours
Subjective/Interval History
-
Date of Service: May 19, 2024
Reports persistent RLE foot pain swelling.
Objective Data
-
Labs:
Laboratory Results
05/18/24 05/19/24 05/19/24
20:59 06:16 06:47
WBC 9.6 10.1
Hgb 14.2 14.1
Hct 41.2 40.5
Plt Count 359 374
Sodium 136 Cancelled Pending
Potassium 4.1 Cancelled Pending
Chloride 97 L Cancelled Pending
Carbon Dioxide 30 Cancelled Pending
BUN 28 H Cancelled Pending
Creatinine 1.0 Cancelled Pending
Glucose 100 H Cancelled Pending
Calcium 9.2 Cancelled Pending
Total Bilirubin 0.4
AST 33
ALT 33
Alkaline Phosphatase 103
Vital Signs:
Vital Signs
Temp Pulse Resp BP Pulse Ox
99.1 F 94 18 130/80 96
05/19/24 06:17 05/19/24 06:17 05/19/24 06:17 05/19/24 06:00 05/19/24 06:17
[2024-05-19 07:33] LABS: Blood Urea Nitrogen 22 mg/dl (9-20); Carbon Dioxide 29 mmol/L (22-30); Chloride 97 mmol/L (98-107); Estimated Creatinine Clearance 96 ml/min; Glucose 134 mg/dl (70-99); Potassium 3.7 mmol/L (3.5-5.1); Sodium 134 mmol/L (135-145); eGFR > 60.00
--- NOTE | 2024-05-19 07:49 | PHA.VAN.IN ---
Assessment
- Assessment
Renal Function: Appears similar to baseline
AUC Dosing Plan
- Dosing Variables
Dosing Weight (kg): 90
Dosing CrCl (ml/min): 96
Vd coefficient (L/kg): 0.7
- Empiric Dosing
Initial / Loading Dose: 2000 mg - adm 00:36 05/19/24
Maintenance Regimen: 1250 mg q12h
Estimated AUC (mcg*h/mL): 502
Estimated Peak (mcg*h/mL): 31.2
Estimated Trough (mcg/ml): 12.9
Estimated Half Life (H): 8.2
- Monitoring
No levels ordered at this time: consider levels when pt nears steady state
Pharmacokinetics Vancomycin I
- -
Patient Age: 59
Patient Sex: Male
Vancomycin Day #: 1
Indication: Skin And Soft Tissue
Requesting Provider: Shubham
Height / Weight:
Height 6 ft
Actual Weight 90.2 kg
Pertinent Past Medical History: COPD, IVDA
- Vital Signs / Lab Results
Temp Pulse Resp BP Pulse Ox
99.1 F 94 18 130/80 96
05/19/24 06:17 05/19/24 06:17 05/19/24 06:17 05/19/24 06:00 05/19/24 06:17
Lab Results - Hematology
05/18/24 05/19/24
20:59 06:16
WBC 9.6 10.1
Lab Results - Chemistry
05/18/24 05/19/24 05/19/24
20:59 06:16 06:57
BUN 28 H Cancelled 22 H
Creatinine 1.0 Cancelled 0.9
Estimated Creat Clear Cancelled 96
Albumin 4.0
[2024-05-19] MEDS: TORADOL 15 MG IV ×2 (08:25→19:08)
[2024-05-19] MEDS: TYLENOL 650 MG PO (08:30)
[2024-05-19] MEDS: LOTREL 5 MG/20 MG 1 CAPSULE PO (09:02)
[2024-05-19] MEDS: VANCOCIN 275 MG IV (09:07)
--- NOTE | 2024-05-19 09:20 | CM ---
Patient seen at bedside in ED. Patient stated that he lives in a home and rents a room on the 3rd floor. Patient stated that there were 14 stairs on one flight and he lost track of all of the steps. Patient has home O2 from [employer], portable that he
uses at night. Patient smoked according to past chart review patient is a smoker. Patient PCP is Dr. Grace. Patient uses the [facility] in [place] as his pharmacy of choice at this time. Patient also uses the [facility] but it is closed today. Patient has
a walker, cane and commode. Patient has no memory of HH and complained of pain in foot. CM will continue to follow for discharge planning needs.
Plan; home with VN/home O2 and watch for possible SNF needs.
[2024-05-19 11:30] LABS: Uric Acid 8.2 mg/dl (3.5-8.5)
[2024-05-19] MEDS: NICODERM TRANSDERMAL 14 MG TRANSDERM (11:43)
[2024-05-19] MEDS: LOVENOX 40 MG SC (17:59)
[2024-05-19] MEDS: ANCEF 10 IV (20:16)
[2024-05-20] MEDS: DILAUDID 0.5 MG IV (01:23)
[2024-05-20] MEDS: ANCEF 10 IV ×3 (03:36→19:50)
[2024-05-20 05:36] LABS: Hematocrit 40.2 % (39.0-52.0); Hemoglobin 13.7 g/dL (13.0-18.0); Mean Corp Hgb Conc. 34.1 g/dL (33.0-37.0); Mean Corpuscular Hgb 28.2 pg (27.0-31.0); Mean Corpuscular Volume 82.7 fL (80.0-94.0); Mean Platelet Volume 9.2 fL (7.4-10.4); Platelet Count 364 10^3/uL (130-400); Red Blood Cell Count 4.86 10^6/uL (4.70-6.10); Red Cell Dist. Width 13.3 % (11.5-14.5); White Blood Cell Count 7.8 10^3/uL (4.8-10.8)
[2024-05-20 05:58] LABS: Blood Urea Nitrogen 19 mg/dl (9-20); Carbon Dioxide 26 mmol/L (22-30); Chloride 95 mmol/L (98-107); Estimated Creatinine Clearance 107 ml/min; Glucose 126 mg/dl (70-99); Phosphorus 3.3 mg/dl (2.5-4.5); Potassium 4.1 mmol/L (3.5-5.1); Sodium 132 mmol/L (135-145); eGFR > 60.00
[2024-05-20 07:05] VITALS: BP 161/98
[2024-05-20] MEDS: NICODERM TRANSDERMAL 14 MG TRANSDERM (08:06)
[2024-05-20] MEDS: LOTREL 5 MG/20 MG 1 CAPSULE PO (08:06)
[2024-05-20] MEDS: TYLENOL 650 MG PO (08:12)
--- NOTE | 2024-05-20 08:31 | CON.MD ---
Consultation - Medical
-
59 year old male admitted with right foot redness, swelling and pain. He states this past while in bed scratching an itch on the top of the right foot. The next morning he noticed redness which later became painful and pus was expressed.
PMH includes COPD and IVDA (amphetamines)
Patient is afebrile with WBC WNL
On examination, pedal pulses are palpable bilaterally. Right dorsal foot with pitting edema, erythema with 2nd toe dorsal localized eschar just proximal to the PIPJ. No purulence noted and no surrounding soft tissue necrosis. Area is moderately
tender on palpation.
Impression/Plan
-Right dorsal foot cellulitis
Cellulitis localized to the dorsal forefoot only. No purulence expressed from eschar.
Does not appear to be an insect bite as first suspected, but an infected superficial laceration, possibly from scratching.
Proximal margin of cellulitis marked. Eschar dorsal 2nd toe stable
No surgical intervention warranted at this time. Continue IV antibiotics and will monitor
-COPD
-IVDA
--- NOTE | 2024-05-20 09:21 | W.PN.HOSP.TC ---
Today's Communication/Plan
-
Continue IV Ancef
Assessment / Plan
Assessment / Plan
Physical Exam
General: Mild moderate distress d/t pain
HEENT: Moist mucous membranes and PERRLA
Respiratory: Clear; No Wheezes, Rales or Rhonchi
Cardiac: S1/S2 and Regular Rhythm; No Murmur
GI: Soft, Non Tender, Non Distended and Normal Bowel Sounds
Musculoskeletal: No Clubbing, No Cyanosis
Skin: Right foot swelling erythema most pronounced at 2nd toe with clotted puncture wound noted. tender
Neuro: AOx3 conversant coherent
Rt Foot Cellulitis 2nd toe wound 05/19/24
A/P: Patient is a 59y M with PMH significant for COPD, HTN and IVDA who presents to ED complaining of R foot pain, swelling and redness.
R Foot Cellulitis
- IV vanc switched to cefazolin w/ neg MRSA screen
- Supportive care including pain control.
- Follow for clinical improvement.
- Appreciate podiatry input, no surgical intervention needed
Benign Hypertension
- Stable. Continue amlodipine / benazepril.
COPD
Current Smoker
- Discharged after herniorrhaphy on home O2.
-stable respiratory status on room air
- Nebs PRN.
- Monitor for dyspnea, hypoxemia, etc.
- Encouraged smoking cessation.
-Nicotine supplementation
IVDA - Amphetamine Use Disorder
- Most recent use about one week ago per patient.
- He denies any opioid use history. Denies injecting into feet / digits.
DVT Prophylaxis: Lovenox
Code Status: Full
Total time spent to see the patient on the floor, examine the patient, review data and lab results, discuss treatment plan with patient, nursing staff around 37 minutes.
Anticipated Discharge: 24 - 48 hours
Subjective/Interval History
-
Date of Service: May 20, 2024
Patient reports his right foot pain is improved from admission. No fever, no vomiting. No shortness of breath.
Objective Data
-
Labs:
Laboratory Results
05/20/24
05:07
WBC 7.8
Hgb 13.7
Hct 40.2
Plt Count 364
Sodium 132 L
Potassium 4.1
Chloride 95 L
Carbon Dioxide 26
BUN 19
Creatinine 0.8
Glucose 126 H
Calcium 9.0
Vital Signs:
Vital Signs
Temp Pulse Resp BP Pulse Ox
98.4 F 85 20 161/98 94
05/20/24 07:05 05/20/24 08:06 05/20/24 07:05 05/20/24 08:06 05/20/24 07:05
I&O
05/19/24 05/20/24 05/21/24
06:59 06:59 06:59
Intake Total 720 / 720
Output Total 725 / 725
Balance -5 / -5
[2024-05-20] MEDS: TORADOL 15 MG IV ×2 (10:37→17:46)
[2024-05-20 15:10] VITALS: BP 124/72
[2024-05-20] MEDS: LOVENOX 40 MG SC (17:14)
[2024-05-20 23:10] VITALS: BP 135/89
[2024-05-20] MEDS: ROXICODONE 5 MG PO (23:12)
[2024-05-21] MEDS: TORADOL 15 MG IV ×3 (01:16→18:32)
[2024-05-21] MEDS: ANCEF 10 IV ×3 (03:41→20:51)
[2024-05-21 05:54] LABS: Hematocrit 39.1 % (39.0-52.0); Hemoglobin 13.4 g/dL (13.0-18.0); Mean Corp Hgb Conc. 34.3 g/dL (33.0-37.0); Mean Corpuscular Hgb 28.4 pg (27.0-31.0); Mean Corpuscular Volume 82.8 fL (80.0-94.0); Platelet Count 378 10^3/uL (130-400); Red Blood Cell Count 4.72 10^6/uL (4.70-6.10); Red Cell Dist. Width 13.2 % (11.5-14.5); White Blood Cell Count 6.8 10^3/uL (4.8-10.8)
[2024-05-21 06:16] LABS: Blood Urea Nitrogen 22 mg/dl (9-20); Calcium 9.4 mg/dl (8.4-10.2); Carbon Dioxide 25 mmol/L (22-30); Chloride 99 mmol/L (98-107); Estimated Creatinine Clearance 107 ml/min; Glucose 111 mg/dl (70-99); Magnesium 1.8 mg/dl (1.6-2.3); Phosphorus 3.8 mg/dl (2.5-4.5); Potassium 4.4 mmol/L (3.5-5.1); Sodium 135 mmol/L (135-145); eGFR > 60.00
[2024-05-21 07:25] VITALS: BP 138/90
[2024-05-21] MEDS: NICODERM TRANSDERMAL 14 MG TRANSDERM (07:53)
[2024-05-21] MEDS: LOTREL 5 MG/20 MG 1 CAPSULE PO (07:54)
--- NOTE | 2024-05-21 09:52 | W.PN.HOSP.TC ---
Today's Communication/Plan
-
Increase oxycodone
Increase laxatives
Continue IV Ancef
Assessment / Plan
Assessment / Plan
Physical Exam
General: Mild moderate distress d/t pain
HEENT: Moist mucous membranes and PERRLA
Respiratory: Clear; No Wheezes, Rales or Rhonchi
Cardiac: S1/S2 and Regular Rhythm; No Murmur
GI: Soft, Non Tender, Non Distended and Normal Bowel Sounds
Musculoskeletal: No Clubbing, No Cyanosis
Skin: Right foot swelling erythema most pronounced at 2nd toe with clotted puncture wound noted. tender
Neuro: AOx3 conversant coherent
Rt Foot Cellulitis 2nd toe wound 05/19/24
A/P: Patient is a 59y M with PMH significant for COPD, HTN and IVDA who presents to ED complaining of R foot pain, swelling and redness.
R Foot Cellulitis
- Continue cefazolin D3 w/ neg MRSA screen
- Supportive care including pain control.
- Follow for clinical improvement.
- Appreciate podiatry input, no surgical intervention needed
Constipation
- Increase laxatives
Benign Hypertension
- Stable. Continue amlodipine / benazepril.
COPD
Current Smoker
- Discharged after herniorrhaphy on home O2.
- Encouraged smoking cessation.
- Nicotine supplementation
IVDA - Amphetamine Use Disorder
- Most recent use about one week ago per patient.
- He denies any opioid use history. Denies injecting into feet / digits.
Recent left inguinal hernia repair
- Monitor
DVT Prophylaxis: Lovenox
Code Status: Full
Total time spent to see the patient on the floor, examine the patient, review data and lab results, discuss treatment plan with patient, nursing staff around 38 minutes.
Anticipated Discharge: 24 - 48 hours
Subjective/Interval History
-
Date of Service: May 21, 2024
Patient complains of severe right foot pain with ambulation. No fever, no vomiting. No bowel movement since admission. No chest pain, no shortness of breath.
Objective Data
-
Labs:
Laboratory Results
05/21/24
05:15
WBC 6.8
Hgb 13.4
Hct 39.1
Plt Count 378
Sodium 135
Potassium 4.4
Chloride 99
Carbon Dioxide 25
BUN 22 H
Creatinine 0.8
Glucose 111 H
Calcium 9.4
Vital Signs:
Vital Signs
Temp Pulse Resp BP Pulse Ox
98.1 F 80 20 138/90 95
05/21/24 07:25 05/21/24 07:54 05/21/24 07:25 05/21/24 07:54 05/21/24 07:25
I&O
05/20/24 05/21/24 05/22/24
06:59 06:59 06:59
Intake Total 720 / 720 1680 / 1680
Output Total 725 / 725
Balance -5 / -5 1679 / 1679
[2024-05-21] MEDS: ROXICODONE 5 MG PO (10:23)
[2024-05-21] MEDS: MIRALAX 17 GRAMS PO (11:32)
[2024-05-21] MEDS: SENOKOT-S 2 TABLET PO ×2 (11:32→20:51)
--- NOTE | 2024-05-21 13:50 | W.PN.POD ---
Today's Communication
Today's Communication
Responding to IV antibiotic therapy
No drainage or purulence from eschar. Radiographs negative for osteomyelitis
Surgical intervention not indicated at this time. Reconsult as needed.
Assessment / Plan
-
Dorsal foot edema and erythema
-Eschar dorsal 2nd toe stable. No purulent drainage.
-Radiographs show no cortical disruption to indicate osteomyelitis.
-Edema decreasing dorsal foot and erythema receding from proximal lateral margin
-Responding to IV antibiotic therapy and no surgical intervention needed
-Please reconsult if necessary
IVDA
COPD
Subjective
Chief Complaint
Patient admitted for right foot edema
Subjective
Patient resting in bed comfortably with less pain
Objective
Temp Pulse Resp BP Pulse Ox
98.1 F 80 20 138/90 95
05/21/24 07:25 05/21/24 07:54 05/21/24 07:25 05/21/24 07:54 05/21/24 12:08
05/21/24 05:15
05/21/24 05:15
Vital Signs and Lab results were reviewed.
Review of Systems
Review of Systems
Review of Systems: No Fever and Chills
Physical Exam
Physical Exam
dorsal foot with edema and erythema decreased. Eschar dorsal 2nd toe with no purulent drainage present. Much less tenderness on palpation
[2024-05-21 15:21] VITALS: BP 159/90
[2024-05-21] MEDS: LOVENOX 40 MG SC (17:19)
[2024-05-21 23:18] VITALS: BP 144/92
[2024-05-22] MEDS: MELATONIN 5 MG PO (00:41)
[2024-05-22] MEDS: TORADOL 15 MG IV ×4 (00:41→21:42)
[2024-05-22] MEDS: ANCEF 10 IV ×3 (03:58→19:48)
[2024-05-22 07:25] VITALS: BP 161/99
[2024-05-22] MEDS: NICODERM TRANSDERMAL 14 MG TRANSDERM (08:45)
[2024-05-22] MEDS: MIRALAX 17 GRAMS PO (08:45)
[2024-05-22] MEDS: LOTREL 5 MG/20 MG 1 CAPSULE PO (08:46)
[2024-05-22] MEDS: SENOKOT-S 2 TABLET PO (08:46)
--- NOTE | 2024-05-22 09:02 | W.PN.HOSP.TC ---
Today's Communication/Plan
-
see bold
Assessment / Plan
Assessment / Plan
Physical Exam
General: Mild moderate distress d/t pain
HEENT: Moist mucous membranes and PERRLA
Respiratory: Clear; No Wheezes, Rales or Rhonchi
Cardiac: S1/S2 and Regular Rhythm; No Murmur
GI: Soft, Non Tender, Non Distended and Normal Bowel Sounds
Musculoskeletal: No Clubbing, No Cyanosis
Skin: Right foot swelling erythema most pronounced at 2nd toe with clotted puncture wound noted. tender
Neuro: AOx3 conversant coherent
Rt Foot Cellulitis 2nd toe wound 05/19/24
A/P: Patient is a 59y M with PMH significant for COPD, HTN and IVDA who presents to ED complaining of R foot pain, swelling and redness.
R Foot Cellulitis
- Slow to improve, continue cefazolin D4 w/ neg MRSA screen
- Supportive care including pain control.
- Follow for clinical improvement.
- Appreciate podiatry input, no surgical intervention needed
Constipation
- Increased laxatives
Benign Hypertension
- Stable. Continue amlodipine / benazepril.
COPD
Current Smoker
- Discharged after herniorrhaphy on home O2.
- Encouraged smoking cessation.
- Nicotine supplementation
IVDA - Amphetamine Use Disorder
- Most recent use about one week ago per patient.
- He denies any opioid use history. Denies injecting into feet / digits.
Recent left inguinal hernia repair
- Monitor
Insomnia
- Start melatonin with Benadryl
DVT Prophylaxis: Lovenox
Code Status: Full
Total time spent to see the patient on the floor, examine the patient, review data and lab results, discuss treatment plan with patient, nursing staff around 39 minutes.
Anticipated Discharge: 24 - 48 hours
Subjective/Interval History
-
Date of Service: May 22, 2024
Patient reports improvement in his right foot pain. No bowel movement. No chest pain, no shortness of breath. No fever, no vomiting.
Objective Data
-
Vital Signs:
Vital Signs
Temp Pulse Resp BP Pulse Ox
98.6 F 82 18 161/99 95
05/22/24 07:25 05/22/24 08:46 05/22/24 07:25 05/22/24 08:46 05/21/24 23:18
I&O
05/21/24 05/22/24 05/23/24
06:59 06:59 06:59
Intake Total 1680 / 1680 1330 / 1330
Output Total 550 / 550
Balance 1680 / 1680 780 / 780
[2024-05-22] MEDS: ZOFRAN 4 MG IV (09:30)
--- NOTE | 2024-05-22 11:14 | CM ---
Continue IV antibiotic .
Maintained on po pain meds as needed.
Pt has home oxygen used as night .
Offered VN he declined.
Plan home no anticipated needs
[2024-05-22] MEDS: TYLENOL 650 MG PO (13:34)
[2024-05-22 15:30] VITALS: BP 124/88
[2024-05-22] MEDS: LOVENOX 40 MG SC (17:24)
[2024-05-22] MEDS: MELATONIN 10 MG PO (19:48)
[2024-05-22] MEDS: SENOKOT-S PO (19:49)
[2024-05-22] MEDS: ROXICODONE 5 MG PO (19:55)
[2024-05-22] MEDS: BENADRYL 50 MG PO (21:41)
[2024-05-22 23:00] VITALS: BP 119/78
[2024-05-23] MEDS: ANCEF 10 IV ×2 (03:43→11:08)
[2024-05-23] MEDS: TORADOL 15 MG IV ×2 (03:43→09:47)
[2024-05-23 07:25] VITALS: BP 137/90
[2024-05-23] MEDS: MIRALAX 17 GRAMS PO (08:30)
[2024-05-23] MEDS: NICODERM TRANSDERMAL 14 MG TRANSDERM (08:30)
[2024-05-23] MEDS: SENOKOT-S 2 TABLET PO (08:31)
[2024-05-23] MEDS: LOTREL 5 MG/20 MG 1 CAPSULE PO (08:31)
--- NOTE | 2024-05-23 08:54 | W.PN.HOSP.TC ---
Today's Communication/Plan
-
Discharge on oral Keflex today
Assessment / Plan
Assessment / Plan
Physical Exam
General: Mild moderate distress d/t pain
HEENT: Moist mucous membranes and PERRLA
Respiratory: Clear; No Wheezes, Rales or Rhonchi
Cardiac: S1/S2 and Regular Rhythm; No Murmur
GI: Soft, Non Tender, Non Distended and Normal Bowel Sounds
Musculoskeletal: No Clubbing, No Cyanosis
Skin: Right foot swelling erythema most pronounced at 2nd toe with clotted puncture wound noted. tender
Neuro: AOx3 conversant coherent
Rt Foot Cellulitis 2nd toe wound 05/19/24
A/P: Patient is a 59y M with PMH significant for COPD, HTN and IVDA who presents to ED complaining of R foot pain, swelling and redness.
R Foot Cellulitis
- Currently on D5 of ancef w/ neg MRSA screen
- Supportive care including pain control.
- Follow for clinical improvement.
- Appreciate podiatry input, no surgical intervention needed
- Much improved today, medically stable for discharge on Keflex 1 g 4 times daily for 7 more days
- Patient has been counseled to follow-up with his PCP in 1 week
Constipation
- Increased laxatives
Benign Hypertension
- Stable. Continue amlodipine / benazepril.
COPD
Current Smoker
- Discharged after herniorrhaphy on home O2.
- Encouraged smoking cessation.
- Nicotine supplementation
IVDA - Amphetamine Use Disorder
- Most recent use about one week ago per patient.
- He denies any opioid use history. Denies injecting into feet / digits.
Recent left inguinal hernia repair
- Monitor
Insomnia
- Start melatonin with Benadryl
DVT Prophylaxis: Lovenox
Code Status: Full
Anticipated Discharge: Today
Subjective/Interval History
-
Date of Service: May 23, 2024
Patient reports improvement in R foot pain. No chest pain, no shortness of breath. No fever, no vomiting.
Objective Data
-
Vital Signs:
Vital Signs
Temp Pulse Resp BP Pulse Ox
99.3 F 78 16 137/90 95
05/23/24 07:25 05/23/24 07:25 05/23/24 07:25 05/23/24 07:25 05/23/24 07:25
I&O
05/22/24 05/23/24 05/24/24
06:59 06:59 06:59
Intake Total 1330 / 1330 1320 / 1320
Output Total 550 / 550 425 / 425
Balance 780 / 780 895 / 895
--- NOTE | 2024-05-23 10:08 | W.DCSUMMARY ---
Discharge Summary
Discharge Data
Date of Admission: 05/19/24
Date of Discharge: 05/23/24
-
Pending Results: No
Hospital Course
Discharge diagnosis:
Right foot cellulitis
Constipation
Chronic obstructive pulmonary disease
Cigarette nicotine dependency
History of intravenous amphetamine use disorder
Recent left inguinal hernia repair 1 month ago
Insomnia
Consults: Podiatry
R foot XR:
1. No radiographic evidence for acute fracture or acute osteomyelitis.
2. Chronic healed intra-articular fracture of the distal end of the proximal phalanx of the right 4th toe.
3. 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
4. Moderate diffuse soft tissue swelling and subcutaneous edema suggesting diffuse cellulitis.
Hospital course:
59-year-old male with a past medical history of COPD, cigarette nicotine dependency, and left inguinal hernia repair was admitted for severe right foot cellulitis. Patient was initially treated with IV vancomycin. His MRSA screen was negative, he
was transitioned to IV Ancef. He was seen in conjunction with podiatry, who states no surgical intervention is needed.
Patient was constipated in the hospital. He was started on laxatives, and recommended to continue MiraLAX twice a day (states he already has it) at home.
He received 4-5 days of IV Ancef. He was frustrated with being in the hospital, and requested discharge. His cellulitis is improving. His edema has resolved, his pain and erythema have improved greatly. He is medically stable for discharge on
Keflex 1 g 4 times daily to complete a 10-day course.
Disposition: Home self-care
Discharge planning: Required 37 minutes
Discharge Plan
-
Patient Disposition: Home (Routine Discharge)
Discharge Diagnosis/Procedures: Right foot cellulitis
Condition: Good
Diet: Regular
Activity: As tolerated
Driving Restrictions: As prior to admission
Activity Restrictions/Additional Instructions:
Please follow-up with your primary care doctor in 1 week.
Referrals:
NONE,* [Family Provider] -
Prescriptions:
New
oxycodone 5 mg Tablet
5 mg PO Q4HPRN PRN (Reason: moderate pain) Qty: 20 0RF
cephalexin 500 mg tablet
1,000 mg PO QID 7 Days Qty: 56 0RF
Continued
amlodipine-benazepril 5-20 mg capsule
1 cap PO DAILY
aspirin 325 mg Tablet
650 mg PO DAILYPRN PRN (Reason: mild pain)
chlorthalidone 25 mg Tablet
25 mg PO DAILY
nicotine 21 mg/24 hr Patch 24 Hour
1 patch TRANSDERMAL DAILY
ibuprofen 200 mg Tablet
400 mg PO DAILYPRN PRN (Reason: mild pain)
omeprazole 20 mg Capsule,Delayed Release(Dr/Ec)
20 mg PO DAILYPRN PRN (Reason: gerd)
albuterol sulfate 90 mcg/actuation Hfa Aerosol Inhaler
2 puff INHALATION R Q6HPRN PRN (Reason: sob)
tadalafil 10 mg Tablet
10 mg PO DAILY PRN (Reason: ED)
Anoro Ellipta 62.5-25 mcg/actuation Blister With Device
1 inh INHALATION R DAILY
Discharge Orders:
Discharge Patient (As Directed); Ordered 05/23/24
Ordered By: Red Aguayo
Discharge Date and Time
Discharge Date/Time: 05/23/24 11:55
Print Language: KOREAN
[2024-05-23 11:16] VITALS: BP 147/89
--- NOTE | 2024-05-23 11:28 | CM ---
MD entered order for discharge .
Spoke with pt he said he is ready for discharge.
[place] friend will drive him home today .
Home on po antibiotics
Pt has home oxygen used as night .
Offered VN he declined.
Plan home no anticipated needs
--- NOTE | 2024-05-24 12:46 | CM ---
Addendum entered by Anjelica Dutton 05/24/24 13:55:
Patient called and agreeable to home health/VN; agency options identified; used [facility] in the past; [facility] unable to accept referral; not in his insurance network
Sent referral to [facility]
Original Note:
CM left a voice mail for patient to call when message is received to discuss coordination of home health/VN visits
== END 2024-05-23 11:55 | disposition home or self-care (01) | DRG 603 ==
LOC: 3 WEST ACU 01:48
PROVIDERS: Internal Medicine; Physician Assistant; ADMITTING PHYSICIAN Hospitalist; ATTENDING PHYSICIAN Family Medicine; CONSULT PHYSICIAN Podiatrist Foot & Ankle Surgery; EMERGENCY PHYSICIAN Emergency Medicine
DX: L03.115 Cellulitis of right lower limb (principal); I10 Essential (primary) hypertension; J44.9 Chronic obstructive pulmonary disease, unspecified; F17.200 Nicotine dependence, unspecified, uncomplicated; F15.10 Other stimulant abuse, uncomplicated; K59.00 Constipation, unspecified; G47.00 Insomnia, unspecified
CPT/HCPCS: 73660; 80048; 80053; 83735; 84100; 84550; 85025; 85027; 87040; 87641; 93005; 96365; 96366; 96375; 99284; 99406

== ENCOUNTER 2024-05-25 00:07 | Inpatient (IN) | payer OTHER, SELFPAY ==
[2024-05-24 16:50] VITALS: BP 144/100
[2024-05-24 19:51] VITALS: BMI 32.0
[2024-05-24 20:00] VITALS: BP 138/92
--- NOTE | 2024-05-24 20:08 | ED.GENMED ---
History of Present Illness
General
Chief Complaint: Skin Problem
Source: patient
Time Seen by Provider: 05/24/24 19:55
History of Present Illness
History of Present Illness:
59-year-old male presents to the emergency room because he feels the infection of his right second toe is getting worse. Patient was hospitalized for abscess/cellulitis of the second toe and was discharged yesterday morning. Patient states he
began to have drainage from his toe yesterday. Pain is actually better than it was. He feels the redness has spread to his proximal foot and also to his third toe. He did fill his prescription after discharge and has taken a couple doses of the
antibiotic.
Phy Exam
Physical Exam
Physical Exam:
General: Awake, Alert, Oriented X3. No acute distress.
Vitals: unremarkable
Head: Atraumatic
Eyes: Pupils equal, EOMI
Throat: Airway intact, no exudates
Neck: Trachea midline
Lungs: Clear and equal b/l
Heart: Regular rate, no murmurs
Abd: Soft, Nontender, No pulsatile mass
Neuro: Nonfocal
Skin: Warm, dry, no rash
Extremities: pulses equal b/l, no edema. Open wound noted proximal right second digit. There is friable white material with significant erythema surrounding. Area is tender to palpation. Range of motion of the toe is intact. Third digit is
erythematous.
Course
Orders/Labs/Results
Orders:
Orders
05/24/24 20:07
CR Toe(s) Min 2 Vw Right Urgent
Comment:
Reason For Exam: open wound 2nd digit
05/24/24 20:13
Complete Blood Count/With Diff Urgent
Comprehensive Metabolic Panel Urgent
Lactic Acid Urgent
Wound Culture [Wound/Abscess/Other Culture] Urgent
DIANE Source: Toe
Specimen Description:
Date Specimen was Collected: 05/24/24
Time Specimen was Collected: 20:12
Comment: prox right 2nd toe
05/24/24 21:54
Piperacillin/Tazo 3.375 Gram [Zosyn] 3.375 gram in 50 ml IV NOW
05/24/24 22:23
Oxycodone [Roxicodone] 5 mg PO NOW STA
05/24/24 23:00
Flush (0.9% Sodium Chloride) [Flush (Nss)] See Dose Instructions IV PER PROTOCOL
Abnormal Lab Results
05/24/24
20:13
Absolute Monos (auto) 0.8 H 10^3/uL
(0.1-0.6)
Monocytes % 10.6 H %
(1.7-9.3)
Chloride 97 L mmol/L
(98-107)
BUN 31 H mg/dl
(9-20)
Glucose 110 H mg/dl
(70-99)
05/24/24 20:13
05/24/24 20:13
Vital Signs
Initial and Last Documented VS:
Initial Vital Signs
Temp Pulse Resp BP Pulse Ox
98.0 F 102 16 144/100 96
05/24/24 16:50 05/24/24 16:50 05/24/24 16:50 05/24/24 16:50 05/24/24 16:50
Last Documented Vital Signs
Temp Pulse Resp BP Pulse Ox
98.0 F 82 16 108/70 95
05/24/24 16:50 05/24/24 23:16 05/24/24 16:50 05/24/24 23:00 05/24/24 23:16
MDM/Problems Addressed
Differential Diagnosis Includes:
cellulitis, abscess, deep space infection.
MDM/Problems Addressed:
Patient presents with worsening of his foot infection despite taking oral antibiotics at home. No fever but significant pain. Will hospitalize for IV antibiotics given failure of oral antibiotics. May require debridement of the wound.
*Radiology
Radiology exam reviewed: preliminary read by ED provider (No subcutaneous air or infection of osteo noted on my evaluation of the x-ray)
*Pulse Oximetry
Patient hypoxic: no
*Critical Care Note
Total Time (30-74mins, 75-104mins- exclusive of procedures): Not Applicable
ED Attending Note
-
Portions of this chart may have been created with voice recognition software.� Occasional wrong word or��sound alike� substitutions may have occurred due to the inherent limitations of voice recognition software.
Discharge Plan
Departure
Patient Disposition: Admit
Date of Disposition: 05/24/24
Time of Disposition: 21:55
Presentation/result/management discussed w/ accepting MD/DO: Hospitalist
Condition: Fair
Discharge Problem:
Foot infection
Prescriptions:
No Action
amlodipine-benazepril 5-20 mg capsule
1 cap PO DAILY
aspirin 325 mg Tablet
650 mg PO DAILYPRN PRN (Reason: mild pain)
chlorthalidone 25 mg Tablet
25 mg PO DAILY
nicotine 21 mg/24 hr Patch 24 Hour
1 patch TRANSDERMAL DAILY
ibuprofen 200 mg Tablet
400 mg PO DAILYPRN PRN (Reason: mild pain)
omeprazole 20 mg Capsule,Delayed Release(Dr/Ec)
20 mg PO DAILYPRN PRN (Reason: gerd)
albuterol sulfate 90 mcg/actuation Hfa Aerosol Inhaler
2 puff INHALATION R Q6HPRN PRN (Reason: sob)
tadalafil 10 mg Tablet
10 mg PO DAILY PRN (Reason: ED)
Anoro Ellipta 62.5-25 mcg/actuation Blister With Device
1 inh INHALATION R DAILY
oxycodone 5 mg Tablet
5 mg PO Q4HPRN PRN (Reason: moderate pain) Qty: 20 0RF
cephalexin 500 mg tablet
1,000 mg PO QID 7 Days Qty: 56 0RF
Referrals:
NONE,* [Family Provider] -
Interventions
Interventions:
*Risk Screen - Suicide Last Done: 05/24/24 16:50
*General Assessment Last Done: 05/24/24 16:50
*Neglect/Abuse Screening Last Done: 05/24/24 16:50
*ED- Fall Risk Assessment Last Done: 05/24/24 16:50
*ED COVID-19 Vaccine History Last Done: 05/24/24 16:50
ED-Skin Assessment Last Done: 05/24/24 19:51
Discharge Date and Time
Print Language: [id number]
[2024-05-24 20:25] LABS: % Basophils 0.8 % (0-2); % Eosinophils 1.1 % (0-6); % Immature Granulocytes 0.3 % (0-0.5); % Monocytes 10.6 % (1.7-9.3); % Neutrophils 58.2 % (42.2-75.2); Absolute Basophils 0.1 10^3/uL (0-0.2); Absolute Eosinophils 0.1 10^3/uL (0-0.7); Absolute Lymphocytes 2.3 10^3/uL (1.2-3.4); Absolute Monocytes 0.8 10^3/uL (0.1-0.6); Absolute Neutrophils 4.6 10^3/uL (1.4-6.5); Hematocrit 40.1 % (39.0-52.0); Hemoglobin 13.8 g/dL (13.0-18.0); Mean Corp Hgb Conc. 34.4 g/dL (33.0-37.0); Mean Corpuscular Hgb 28.3 pg (27.0-31.0); Mean Corpuscular Volume 82.3 fL (80.0-94.0); Mean Platelet Volume 8.3 fL (7.4-10.4); Nucleated Red Blood Cells % 0 % (-); Platelet Count 377 10^3/uL (130-400); Red Blood Cell Count 4.87 10^6/uL (4.70-6.10); Red Cell Dist. Width 13.2 % (11.5-14.5); White Blood Cell Count 7.8 10^3/uL (4.8-10.8)
[2024-05-24 20:40] LABS: ALT (SGPT) 25 U/L (0-50); AST (SGOT) 38 U/L (17-59); Alkaline Phosphatase 100 U/L (38-126); Blood Urea Nitrogen 31 mg/dl (9-20); Calcium 9.5 mg/dl (8.4-10.2); Carbon Dioxide 27 mmol/L (22-30); Chloride 97 mmol/L (98-107); Estimated Creatinine Clearance 77 ml/min; Glucose 110 mg/dl (70-99); Potassium 4.5 mmol/L (3.5-5.1); Sodium 135 mmol/L (135-145); Total Bilirubin 0.6 mg/dl (0.2-1.3); Total Protein 7.9 g/dl (6.3-8.2); eGFR > 60.00
[2024-05-24 20:42] LABS: Lactic Acid 1.1 mmol/L (0.7-2.0)
[2024-05-24 21:49] VITALS: BP 146/91
[2024-05-24 22:00] VITALS: BP 143/91
[2024-05-24] MEDS: ZOSYN 50 IV (22:16)
[2024-05-24] MEDS: ROXICODONE 5 MG PO (22:34)
[2024-05-24 23:00] VITALS: BP 108/70
--- NOTE | 2024-05-24 23:05 | HPS.HSE ---
Family Physician
-
Family Physician: * NONE
Chief Complaint
-
right second toe infection
History of Present Illness
Patient is a 59-year-old male with past medical history of hypertension and COPD who presented to [facility] ED for evaluation of worsening infection to right second toe. Patient with recent hospitalization for abscess/cellulitis of the right second toe
from 05/19/2024 - 05/23/2024. Patient reports drainage from toe started yesterday. He was able to fill prescription after discharge and has taken the antibiotic as prescribed. He reports today he fells the erythema has spread to proximal foot and
third toe. He reports pain had improved but is beginning to come back with pressure sensation in toe.
Medical History
Past Medical History
Past Medical History: Reports Other
Additional Past Medical History:
Hypertension
COPD
Past Surgical History: Reports Other
Additional Past Surgical History:
Left Inguinal hernia Repair (04/2024)
Bilateral RONDA
L3-4 Laminectomy and Fusion
Social History
Tobacco: Smoker (Current every day smoker)
Alcohol: None
Drug: Other (Methamphetamines - nasal / IV.)
Family History
Family History: Not pertinent
Allergies / Home Medications
Allergies reflects when Allergies were last updated in [facility].
Home Medications with original date entered in [facility]
Allergy/Medication List:
Allergies
Allergy/AdvReac Type Severity Reaction Status Date / Time
No Known Allergies Allergy Verified 05/18/24 16:11
Home Medications
amlodipine 5 mg-benazepril 20 mg capsule 1 cap PO DAILY Blood Pressure 04/16/24
albuterol sulfate 90 mcg/actuation aerosol inhaler 2 puff inhalation R Q6HPRN PRN sob 05/19/24
aspirin 325 mg tablet 650 mg PO DAILYPRN PRN mild pain 05/19/24
chlorthalidone 25 mg tablet 25 mg PO DAILY Blood Pressure 05/19/24
ibuprofen 200 mg tablet 400 mg PO DAILYPRN PRN mild pain 05/19/24
nicotine 21 mg/24 hr daily transdermal patch 1 patch transdermal DAILY SMOKING CESSATION AID 05/19/24
omeprazole 20 mg capsule,delayed release 20 mg PO DAILYPRN PRN gerd 05/19/24
tadalafil 10 mg tablet 10 mg PO DAILY PRN ED 05/19/24
umeclidinium 62.5 mcg-vilanterol 25 mcg/actuation powdr for inhalation (Anoro Ellipta) 1 inh inhalation R DAILY Lung/Breathing Issues 05/19/24
cephalexin 500 mg tablet 1,000 mg (2 x 500 mg) PO QID 7 days #56 tabs 05/23/24
oxycodone 5 mg tablet 5 mg PO Q4HPRN PRN moderate pain #20 tabs 05/23/24
Review of Systems
-
History Source: Patient
Constitutional: Reports No Symptoms
EENT: Reports No Symptoms
Respiratory: Reports No Symptoms
Cardiac: Reports No Symptoms
Abdomen/GI: Reports No Symptoms
: Reports No Symptoms
Musculoskeletal: Reports Other (right second toe open wound with surrounding erythema )
Skin: Reports No Symptoms
Neurological: Reports No Symptoms
Endocrine: Reports No Symptoms
Hematologic/Lymphatic: Reports No Symptoms
Psych: Reports No Symptoms
Physical Exam
Vital Signs
Vital Signs
Temp Pulse Resp BP Pulse Ox
98.0 F 102 16 143/91 91
05/24/24 16:50 05/24/24 16:50 05/24/24 16:50 05/24/24 22:00 05/24/24 21:50
Physical Exam
General: Well Developed, Well Nourished, No Apparent Distress and Conversant
HEENT: NormoCephalic, Moist mucous membranes, Atraumatic, [place] Conjunctivae, Nose Appears Normal and Ears Appear Normal
Respiratory: Clear
Cardiac: S1/S2 and Regular Rhythm; No Murmur or Rub
Breast: Deferred by me
GI: Soft, Non Tender, Non Distended and Normal Bowel Sounds; No Organomegaly
Rectal: Deferred by Provider
Genito-urinary: Deferred by me
Musculoskeletal: No Clubbing, No Cyanosis and Edema, Right Lower Extremity (right second toe and surrounding area with erythema and edematous )
Skin: No Rash
Neuro: Awake, Alert, AO x 3 and Nonfocal/grossly intact
Psych: Agitated
Laboratory Results
-
05/24/24 20:13
05/24/24 20:13
Laboratory Results
Lactic Acid 1.1 mmol/L (0.7-2.0) 05/24/24 20:13
Total Bilirubin 0.6 mg/dl (0.2-1.3) 05/24/24 20:13
AST 38 U/L (17-59) 05/24/24 20:13
ALT 25 U/L (0-50) 05/24/24 20:13
Alkaline Phosphatase 100 U/L (38-126) 05/24/24 20:13
Data Reviewed
-
Diagnostic Radiology: Report Reviewed by me (Right 2nd Toe: There is soft tissue swelling along the proximal aspect of the second toe without findings suggestive of underlying acute osteomyelitis. Irregularity of the proximal phalanx of the fourth
toe which appears chronic, and may be sequelae of prior injury.)
Lab Data: Labs Reviewed by me (BUN 31, Creat 1.1)
Impression/Plan
-
IMPRESSION/PLAN:
#right 2nd toe cellulitis
Rt 2nd toe x-ray: There is soft tissue swelling along the proximal aspect of the second toe without findings suggestive of underlying acute osteomyelitis.
Irregularity of the proximal phalanx of the fourth toe which appears chronic, and may be sequelae of prior injury.
Wound Cx: pending
- Admit to med/surg
- Consult ID
- Consult Podiatry
- IV antibiotics
- supportive care
#hypertension
- continue amlodipine - benazepril
#COPD
- continue Anoro Ellipta
#Hx IVDA with Amphetamine use disorder
- most recent use approximately 2 weeks ago
- denies injecting in foot
Code status: DNR
DVT prophylaxis: Lovenox sq
[2024-05-25] VITALS: BP 122/95
[2024-05-25] MEDS: DILAUDID 0.5 MG IV (00:06)
[2024-05-25] MEDS: FLUSH (NSS) 1 FLUSH IV (00:07)
--- NOTE | 2024-05-25 00:12 | W.PN.UPDATE ---
Update Note
Progress Note Update
Patient seen in conjunction with MANUEL. I agree the findings on history and physical I concur with assessment and plan listed otherwise.
Briefly, this is a 59-year-old male with past medical history significant for COPD not on home O2, hypertension recently admitted for a right-sided secondary to cellulitis status post initial treatment with vancomycin and then tapering to Ancef and
discharged about 3 days ago presents to the emergency department with development of additional swelling and redness.
Patient was seen by DENNIS and orthopedic. He did not have any osteomyelitis. He did not have an abscess on initial admission. He was treated with antibiotics with improvement in his symptoms and then was discharged on oral Keflex. Started taking
the Keflex after discharge. Patient reported that the previous night he had some swelling in his toe and then when he had showered the swelling opened up and he had purulent drainage. He applied peroxide and warm compresses to keep the area open.
The drainage did stop and the swelling recurred with associated throbbing intermittent pain as well as erythema. He denied having any fevers or chills. Said to come to the emergency department as the swelling remained persistent.
Here in the emergency department he was afebrile, blood pressure of 108/70 with a pulse of 82 satting 98% on room air. CBC remains unremarkable. Electrolytes were also normal. His x-ray shows soft tissue swelling without signs of osteomyelitis.
Will admit to F
For history of purulent cellulitis, will continue with current coverage with Ancef. He had a negative MRSA swab. He has been afebrile and hemodynamically stable. He has no leukocytosis and no other signs of systemic illness. No signs of osteo on
the x-ray. Will get ID consultation. He may need continued drainage of that cellulitis so we also consult podiatry.
Pain control,
Continue his antihypertensives
DVT prophylaxis with Lovenox
CODE STATUS�DNR
[2024-05-25 02:27] VITALS: BMI 31.0
[2024-05-25 02:28] VITALS: BP 105/78
[2024-05-25] MEDS: ROXICODONE 5 MG PO (06:00)
[2024-05-25] MEDS: STRIVERDI RESPIMAT 2 PUFF INH (07:24)
[2024-05-25] MEDS: SPIRIVA RESPIMAT 2.5 MCG 2 PUFF INH (07:24)
[2024-05-25 07:31] VITALS: BP 126/82
[2024-05-25 07:57] LABS: Hemoglobin 13.8 g/dL (13.0-18.0); Mean Corp Hgb Conc. 33.7 g/dL (33.0-37.0); Mean Corpuscular Hgb 28.2 pg (27.0-31.0); Mean Corpuscular Volume 83.8 fL (80.0-94.0); Mean Platelet Volume 8.8 fL (7.4-10.4); Platelet Count 390 10^3/uL (130-400); Red Blood Cell Count 4.89 10^6/uL (4.70-6.10); Red Cell Dist. Width 13.3 % (11.5-14.5); White Blood Cell Count 6.8 10^3/uL (4.8-10.8)
[2024-05-25] MEDS: LOTREL 5 MG/20 MG 1 CAPSULE PO (08:28)
[2024-05-25] MEDS: Hygroton 25 MG PO (08:29)
[2024-05-25 08:34] LABS: Blood Urea Nitrogen 30 mg/dl (9-20); Calcium 9.3 mg/dl (8.4-10.2); Carbon Dioxide 28 mmol/L (22-30); Chloride 97 mmol/L (98-107); Estimated Creatinine Clearance 76 ml/min; Glucose 96 mg/dl (70-99); Potassium 4.8 mmol/L (3.5-5.1); Sodium 134 mmol/L (135-145); eGFR > 60.00
--- NOTE | 2024-05-25 10:54 | CM ---
Went to see patient on floor. RN notified CM patient has left AMA.
--- NOTE | 2024-05-25 12:59 | W.PN.UPDATE ---
Update Note
Progress Note Update
Patient left AMA this morning..
--- NOTE | 2024-05-25 13:41 | W.DCSUMMARY ---
Discharge Summary
Discharge Data
Date of Admission: 05/25/24
Date of Discharge: 05/25/24
-
Pending Results: No
Hospital Course
Discharge diagnosis:
Right foot cellulitis
Constipation
Chronic obstructive pulmonary disease
Cigarette nicotine dependency
History of intravenous amphetamine use disorder
Recent left inguinal hernia repair 1 month ago
Insomnia
Consults: Podiatry
Hospital course:
59-year-old male with past medical history significant for COPD not on home O2, and hypertension recently admitted for a right foot cellulitis status post initial treatment with vancomycin and then tapering to Ancef, and discharged 2 days ago
presents to the emergency department with development of additional swelling and redness. He states that his right second toe started having purulent drainage, and he came back to the ER. Patient was readmitted, placed back on IV Ancef. However,
he left AGAINST MEDICAL ADVICE prior to being seen by podiatry and myself.
Disposition: AGAINST MEDICAL ADVICE
Discharge Plan
-
Patient Disposition: Against Medical Advice
Referrals:
NONE,* [Family Provider] -
Prescriptions:
No Action
amlodipine-benazepril 5-20 mg capsule
1 cap PO DAILY
aspirin 325 mg Tablet
650 mg PO DAILYPRN PRN (Reason: mild pain)
chlorthalidone 25 mg Tablet
25 mg PO DAILY
nicotine 21 mg/24 hr Patch 24 Hour
1 patch TRANSDERMAL DAILY
ibuprofen 200 mg Tablet
400 mg PO DAILYPRN PRN (Reason: mild pain)
omeprazole 20 mg Capsule,Delayed Release(Dr/Ec)
20 mg PO DAILYPRN PRN (Reason: gerd)
albuterol sulfate 90 mcg/actuation Hfa Aerosol Inhaler
2 puff INHALATION R Q6HPRN PRN (Reason: sob)
tadalafil 10 mg Tablet
10 mg PO DAILY PRN (Reason: ED)
Anoro Ellipta 62.5-25 mcg/actuation Blister With Device
1 inh INHALATION R DAILY
oxycodone 5 mg Tablet
5 mg PO Q4HPRN PRN (Reason: moderate pain) Qty: 20 0RF
cephalexin 500 mg tablet
1,000 mg PO QID 7 Days Qty: 56 0RF
Discharge Date and Time
Discharge Date/Time: 05/25/24 10:54
Print Language: UKRAINIAN
== END 2024-05-25 10:54 | disposition left against medical advice (07) | DRG 603 ==
LOC: 4 WEST ACU 00:07
PROVIDERS: Nurse Practitioner Family; Student in an Organized Health Care Education/Training Program; ADMITTING PHYSICIAN Internal Medicine; ATTENDING PHYSICIAN Family Medicine; EMERGENCY PHYSICIAN Emergency Medicine
DX: L03.031 Cellulitis of right toe (principal); B95.62 Methicillin resistant Staphylococcus aureus infection as the cause of diseases classified elsewhere; K59.00 Constipation, unspecified; J44.9 Chronic obstructive pulmonary disease, unspecified; F17.210 Nicotine dependence, cigarettes, uncomplicated; I10 Essential (primary) hypertension; G47.00 Insomnia, unspecified
CPT/HCPCS: 73660; 80048; 80053; 83605; 85025; 85027; 87070; 87147; 87186; 87205; 96365; 99284

== ENCOUNTER → 2024-05-30 08:17 | Outpatient (REF) | payer OTHER, SELFPAY | LOC: WOUND 08:17 | PROVIDERS: ATTENDING PHYSICIAN Surgery; FAMILY PHYSICIAN Family Medicine | DX: L97.513 Non-pressure chronic ulcer of other part of right foot with necrosis of muscle (principal); T63.304A Toxic effect of unspecified spider venom, undetermined, initial encounter; I73.9 Peripheral vascular disease, unspecified; F17.210 Nicotine dependence, cigarettes, uncomplicated; J44.9 Chronic obstructive pulmonary disease, unspecified; S90.464A Insect bite (nonvenomous), right lesser toe(s), initial encounter | CPT/HCPCS: 99204 ==

== ENCOUNTER → 2024-06-06 10:00 | Outpatient (REF) | payer OTHER, SELFPAY | LOC: WOUND 10:00 | PROVIDERS: ATTENDING PHYSICIAN Surgery; FAMILY PHYSICIAN Family Medicine | DX: L97.513 Non-pressure chronic ulcer of other part of right foot with necrosis of muscle (principal); T63.304A Toxic effect of unspecified spider venom, undetermined, initial encounter; I73.9 Peripheral vascular disease, unspecified; F17.210 Nicotine dependence, cigarettes, uncomplicated; J44.9 Chronic obstructive pulmonary disease, unspecified; W57.XXXA Bitten or stung by nonvenomous insect and other nonvenomous arthropods, initial encounter | CPT/HCPCS: 11043; 99406 ==

== ENCOUNTER → 2024-06-11 09:28 | Outpatient (REF) | payer OTHER, SELFPAY | LOC: RAD 09:28 | PROVIDERS: ATTENDING PHYSICIAN Surgery; FAMILY PHYSICIAN Family Medicine | DX: L97.513 Non-pressure chronic ulcer of other part of right foot with necrosis of muscle (principal) | CPT/HCPCS: 93922 ==

== ENCOUNTER → 2024-06-13 09:02 | Outpatient (REF) | payer OTHER, SELFPAY | LOC: WOUND 09:02 | PROVIDERS: ATTENDING PHYSICIAN Surgery; FAMILY PHYSICIAN Family Medicine | DX: L97.513 Non-pressure chronic ulcer of other part of right foot with necrosis of muscle (principal); T63.304A Toxic effect of unspecified spider venom, undetermined, initial encounter; I73.9 Peripheral vascular disease, unspecified; J44.9 Chronic obstructive pulmonary disease, unspecified; F17.210 Nicotine dependence, cigarettes, uncomplicated | CPT/HCPCS: 11043 ==

== ENCOUNTER → 2024-06-20 09:48 | Outpatient (REF) | payer OTHER, SELFPAY | LOC: RAD 09:48 | PROVIDERS: ATTENDING PHYSICIAN Podiatrist; FAMILY PHYSICIAN Family Medicine | DX: M86.072 Acute hematogenous osteomyelitis, left ankle and foot (principal) | CPT/HCPCS: 73630 ==

== ENCOUNTER 2024-12-24 13:14 | Inpatient (IN) | payer OTHER, SELFPAY ==
[2024-12-24] VITALS (11 sets, daily range): BP systolic 115–152; BP diastolic 65–104; BMI 31.3
[2024-12-24] MEDS: DUONEB 3 ML INH (11:14)
[2024-12-24 11:23] LABS: Hematocrit 42.5 % (39.0-52.0); Hemoglobin 14.7 g/dL (13.0-18.0); Mean Corp Hgb Conc. 34.6 g/dL (33.0-37.0); Mean Corpuscular Volume 89.9 fL (80.0-94.0); Nucleated Red Blood Cells % 0 % (-); Platelet Count 303 10^3/uL (130-400); Red Cell Dist. Width 12.8 % (11.5-14.5)
--- NOTE | 2024-12-24 11:23 | ED.GENMED ---
History of Present Illness
General
Chief Complaint: Chest Pain
Time Seen by Provider: 12/24/24 11:00
History of Present Illness
History of Present Illness:
Patient is a 59-year-old male with history of COPD, hypertension, smoker presenting to the emergency department with chest pain. Patient states that this morning he was walking up the steps at 9 AM when he developed chest tightness. He tried to
relax the symptoms did not resolve. During his car ride over your symptoms have resolved. He did take 2 of aspirin. He has not had any exertional chest pain before. No shortness of breath. No leg swelling hemoptysis history of blood clots. He
is on oxygen upon exertion for his COPD. He denies using his inhalers. Patient denies any shortness of breath. At this time he states that he is back to his baseline.
Phy Exam
Physical Exam
Physical Exam:
GENERAL: in no acute distress
HEENT: normocephalic, extraocular movements intact, moist oral mucosa
NECK: normal inspection
RESPIRATORY: no respiratory distress, tight breath sounds bilaterally
CARDIOVASCULAR: regular rate and rhythm
ABDOMEN/: soft, non-distended, non-tender to palpation, no rebound or guarding
EXTREMITIES: non-tender, no edema/swelling
NEUROLOGIC: awake and alert, moves all extremities
SKIN: warm
Scores
Heart Score for Chest Pain Patients
STEMI patient?: No
History: Moderately Suspicious
ECG: Nonspecific Repolarization
Age: >45 - <65 years
Risk Factors: 1 or 2 Risk Factors
Troponin: >/= 3 x Normal Limit
Heart Score for Chest Pain Patients: 6
Heart Score Risk: 20.3% MACE over next 6 weeks
Course
Orders/Labs/Results
Orders:
Orders
12/24/24 10:34
Electrocardiogram (*1) Urgent
Reason for Study: Chest Pain
EKG- Treatment ONCE
12/24/24 10:54
Cardiac Monitoring- Treatment ONCE
IV Insert/Care/Rem.- Treatment PRN
O2 Therapy [RESP] Urgent
Titrate/Wean O2 to maintain O2 sat greater than (%): 90
Special Instructions: Maintain sats >/=90%
Pulse Ox/spot Check [RESP] Urgent
Quantity: 1
Special Instructions: ON ROOM AIR
12/24/24 10:56
Complete Blood Count/With Diff Urgent
Comprehensive Metabolic Panel Urgent
NT-proBNP Urgent
Comment: ADD ON
Troponin I Urgent
12/24/24 11:06
Ipratropium/Albuterol Sulfate [Duoneb] 3 ml INH R NOW STA
CR Chest - 2 Views Urgent
Comment:
Reason For Exam: sob
12/24/24 11:29
Add On- LAB Urgent
Comments:: tube in lab
Tests Added?: pro-bnp
12/24/24 11:43
EKG- Treatment ONCE
12/24/24 12:10
PTT Urgent
Comment: Obtain baseline before beginning heparin infusion if not already collected
Heparin 4,000 units IV NOW STA
Pharmacy Request to Place See Dose Instructions PO NOW STA
Discontinue all Active Warfarin orders?: Yes
Nursing to Place Non Medication Order As Directed
Physician Order: PTT 6 hours after initial start of Heparin infusion
12/24/24 12:15
Heparin INFUSION titrate rate - CONTINUOUS Heparin 47318 Units/250 ml 25,000 units in 250 ml IV PER PROTOCOL
Weight to be used for heparin protocol in kilograms (kg):: 90.7
Protocol:: Cardiac Tx/Acute Coronary
PTT Goal Range to be used:: PTT 73 to 111 seconds
Order type:: Initial
INITIAL Infusion Dose (UNITS/KG/hr) & then follow protocol:: 12 units/kg/hr
Infusion Dose in UNITS/hr & then follow protocol (UNITS/hr):: 1,000
INFUSION RATE in mL/hr & then follow protocol (mL/hr):: 10
PTT less than or equal to 64 seconds:: Increase rate by 200 units/hr (+ 2 mL/hr)
PTT 64.1 to 72.9 seconds:: Increase rate by 100 units/hr (+ 1 mL/hr)
PTT 73 to 111 seconds:: Target Range. No change in rate.
PTT 111.1 to 130.9 seconds:: Decrease rate by 100 units/hr (- 1 mL/hr)
PTT 131 to 199.9 seconds:: HOLD for 1 hr. Then decrease rate by 200 units/hr (- 2 mL/hr)
PTT greater than or equal to 200 seconds:: HOLD for 2 hrs & Notify Provider. Then decrease by 200 units/hr (-
2 mL/hr)
Lab follow-up:: Each change, PTT q6h until 2 consecutive are therapeutic. Then PTT
daily.
12/24/24 13:[address] See Dose Instructions IV DIRECTED
12/24/24 13:30
Electrocardiogram (*1) Urgent
Reason for Study: Chest Pain
Troponin I Urgent
Abnormal Lab Results
12/24/24
10:56
MCH 31.1 H pg
(27.0-31.0)
Lymphocytes % 20.0 L %
(20.5-51.1)
Sodium 130 L mmol/L
(135-145)
Chloride 97 L mmol/L
(98-107)
BUN 22 H mg/dl
(9-20)
Glucose 163 H mg/dl
(70-99)
Troponin I 0.122 H* ng/ml
12/24/24 10:56
12/24/24 10:56
Vital Signs
Initial and Last Documented VS:
Initial Vital Signs
Temp Pulse Resp BP Pulse Ox
98.5 F 89 22 152/104 91
12/24/24 10:31 12/24/24 10:31 12/24/24 10:31 12/24/24 10:31 12/24/24 10:31
Last Documented Vital Signs
Temp Pulse Resp BP Pulse Ox
98.5 F 80 15 131/82 85
12/24/24 10:31 12/24/24 11:45 12/24/24 11:45 12/24/24 11:25 12/24/24 11:45
MDM/Problems Addressed
Differential Diagnosis Includes:
Patient is a 59-year-old male with history of COPD on oxygen, hypertension, smoker presenting to the emergency department chest tightness that is now resolved. On arrival patient's oxygen is in the low 90s on his 2 L nasal cannula. Exam does show
tight breath sounds. Concern for atypical ACS versus COPD exacerbation versus pneumonia versus viral URI. History and exam not consistent with PE or aortic pathology. Will check blood work EKG chest x-ray. Will give nebulizer treatment and
reassess.
*Pulse Oximetry
SaO2: 88
Nasal Cannula flow liters per minute: 3
Oxygen Mode of Delivery: Room air
Patient hypoxic: yes
*Critical Care Note
Total Time (30-74mins, 75-104mins- exclusive of procedures): 31
comment:
Critical care statement: A total of 31 minutes of critical care time was provided for this patient. This includes management of unstable vital signs, evaluation of the patient at bedside, reviewing the patient's pertinent medical records, ordering
and reviewing studies, arranging urgent treatment with development of a management plan, evaluating patient's response to treatment, frequent reassessment, and discussion with consultants. This time was separate from time utilized to perform the
aforementioned documented procedures.
Update Note
Update Note:
EKG per my interpretation with no obvious ST changes.
After nebulizer treatment patient does have Rales that are more prominent. Will add on BNP.
Critical call from lab. Patient's troponin is elevated. Given history we will give heparin. Discussed with cardiology who is in agreement. Will admit to the hospitalist for further treatment.
ED Attending Note
-
Portions of this chart may have been created with voice recognition software.� Occasional wrong word or��sound alike� substitutions may have occurred due to the inherent limitations of voice recognition software.
Discharge Plan
Departure
Patient Disposition: Admit
Date of Disposition: 12/24/24
Time of Disposition: 12:11
Presentation/result/management discussed w/ accepting MD/DO: Hospitalist
Discharge Problem:
Non-ST elevation MA (NSTEMI)
Prescriptions:
No Action
amlodipine-benazepril 5-20 mg capsule
1 cap PO DAILY
aspirin 325 mg Tablet
650 mg PO DAILYPRN PRN (Reason: mild pain)
chlorthalidone 25 mg Tablet
25 mg PO DAILY
nicotine 21 mg/24 hr Patch 24 Hour
1 patch TRANSDERMAL DAILY
ibuprofen 200 mg Tablet
400 mg PO DAILYPRN PRN (Reason: mild pain)
omeprazole 20 mg Capsule,Delayed Release(Dr/Ec)
20 mg PO DAILYPRN PRN (Reason: gerd)
albuterol sulfate 90 mcg/actuation Hfa Aerosol Inhaler
2 puff INHALATION R Q6HPRN PRN (Reason: sob)
tadalafil 10 mg Tablet
10 mg PO DAILY PRN (Reason: ED)
Anoro Ellipta 62.5-25 mcg/actuation Blister With Device
1 inh INHALATION R DAILY
oxycodone 5 mg Tablet
5 mg PO Q4HPRN PRN (Reason: moderate pain) Qty: 20 0RF
cephalexin 500 mg tablet
1,000 mg PO QID 7 Days Qty: 56 0RF
Referrals:
Luis Grace MD [Family Provider, Family Practice]
Interventions
Interventions:
*Risk Screen - Suicide Last Done: 12/24/24 11:21
*General Assessment Last Done: 12/24/24 11:21
*Neglect/Abuse Screening Last Done: 12/24/24 11:21
*ED- Fall Risk Assessment Last Done: 12/24/24 11:21
*ED COVID-19 Vaccine History Last Done: 12/24/24 11:21
*ED Influenza Vaccine History Last Done: 12/24/24 11:21
ED- Cardiac Assessment Last Done: 12/24/24 11:17
Discharge Date and Time
Print Language: ARABIC
--- NOTE | 2024-12-24 11:30 | EDRN ---
Dr. Green in room w/ pt and family.
--- NOTE | 2024-12-24 11:31 | EDRN ---
Oxygen increased to 3lpm as POX 87-89after speaking w/ Dr. Anderson.
[2024-12-24 11:39] LABS: ALT (SGPT) 28 U/L (0-50); AST (SGOT) 32 U/L (17-59); Albumin 4.6 g/dl (3.5-5.0); Alkaline Phosphatase 65 U/L (38-126); Blood Urea Nitrogen 22 mg/dl (9-20); Calcium 9.6 mg/dl (8.4-10.2); Carbon Dioxide 27 mmol/L (22-30); Chloride 97 mmol/L (98-107); Estimated Creatinine Clearance 105 ml/min; Glucose 163 mg/dl (70-99); Potassium 3.8 mmol/L (3.5-5.1); Sodium 130 mmol/L (135-145); Total Protein 8.0 g/dl (6.3-8.2); eGFR > 60.00
[2024-12-24 11:55] LABS: Troponin I 0.122 ng/ml
--- NOTE | 2024-12-24 12:05 | EDRN ---
POX 84-86% w/ oxygen increased to 4lpm via NC at this time.
--- NOTE | 2024-12-24 12:21 | CON.CAR ---
Addendum entered and electronically signed by Ankush Mackenzie MD 12/24/24 17:27:
I saw and evaluated the patient, and I provided the substantive portion of the medical decision making.
I reviewed and agree with the note by MANUEL Bearden and it accurately reflects our care.
I personally performed the medical decision making of the this encounter and my assessment and plan is below:
Prolonged anginal quality CP with + tropoinin.
HTN
Methamphetamine user
COPD, on O2
EKG without ST elevation. Labs: Hgb 14.7, Cr 0.8, Glu 163, HgbA1c 5.5. Na 130.
Pain free
Plan
IV heparin
Topical nitrates
For now avoid bb given significant COPD, but can reconsider as needed
ASA
Cath tomorrow, sooner if refractory angina develops
Original Note:
Consultation
Consultation Request
Date/Time Consultation Requested: 12/24/2024 12:00
Date/Time Consultation Performed: 12/24/2024 12:00
Requesting Provider: Dr. Anderson [MD Resident]
Performing Provider: MANUEL Bearden for Dr. Mackenzie
Reason for Consultation: Chest pain
Medical History
-
Chief Complaint: Chest pain
History of Present Illness:
Tee Arredondo is a 59-year-old male with hypertension, former methamphetamine abuse, COPD with exertional oxygen dependence, and current smoker who presented to the emergency department with a chief complaint of chest pain. His chest pain
started when he was walking up the steps. This was approximately 9 AM. He describes a sensation of midsternal anterior chest tightness that radiated into his bilateral shoulders. Symptoms did not resolve. This prompted ER evaluation. Chest
tightness spontaneously resolved while driving from [address] to [facility] in the car. He is not currently having any chest discomfort. Cardiology was consulted as he was found to have a troponin of 0.122 at approximately 11 AM (2 hours post start of
chest pain). Other notable labs include hyperglycemia with a glucose of 163. EKG with some flattening in aVL but without acute ST elevation.
Past Medical History
Past Medical History: COPD and HTN
Past Surgical History: Orthopedic and Other (Hernia repair)
Social History
Tobacco: Smoker (1-2 PPD x 40 years)
Alcohol: None
Drug: Former User (Methamphetamines. Reports no recent drug use.)
Employment: Not Employed
Family History
Family History: CAD (Mother requiring PCI, age unknown.)
Allergies / Home Medications
Allergy/AdvReac Type Severity Reaction Status Date / Time
No Known Allergies Allergy Verified 12/24/24 10:31
�Medication �Instructions �Recorded �Confirmed �Type
amlodipine 5 mg-benazepril 20 mg 1 cap PO DAILY Blood Pressure 04/16/24 05/24/24 History
capsule
albuterol sulfate 90 mcg/actuation 2 puff inhalation R Q6HPRN PRN sob 05/19/24 05/24/24 History
aerosol inhaler
aspirin 325 mg tablet 650 mg PO DAILYPRN PRN mild pain 05/19/24 05/24/24 History
chlorthalidone 25 mg tablet 25 mg PO DAILY Blood Pressure 05/19/24 05/24/24 History
ibuprofen 200 mg tablet 400 mg PO DAILYPRN PRN mild pain 05/19/24 05/24/24 History
nicotine 21 mg/24 hr daily 1 patch transdermal DAILY SMOKING 05/19/24 05/24/24 History
transdermal patch CESSATION AID
omeprazole 20 mg capsule,delayed 20 mg PO DAILYPRN PRN gerd 05/19/24 05/24/24 History
release
tadalafil 10 mg tablet 10 mg PO DAILY PRN ED 05/19/24 05/24/24 History
umeclidinium 62.5 mcg-vilanterol 1 inh inhalation R DAILY 05/19/24 05/24/24 History
25 mcg/actuation powdr for Lung/Breathing Issues
inhalation (Anoro Ellipta)
cephalexin 500 mg tablet 1,000 mg (2 x 500 mg) PO QID 7 04/10/25 04/11/25 Rx
days #56 tabs
oxycodone 5 mg tablet 5 mg PO Q4HPRN PRN moderate pain 05/23/24 05/24/24 Rx
#20 tabs
Review of Systems
-
History Source: Patient
All other systems: Negative unless noted
Constitutional: Fatigue
EENT: No Symptoms
Respiratory: No Symptoms
Cardiac: No Symptoms
Abdomen/GI: No Symptoms
: No Symptoms
Musculoskeletal: No Symptoms
Skin: No Symptoms
Neurological: No Symptoms
Endocrine: No Symptoms
Hematologic/Lymphatic: No Symptoms
Physical Exam
Vital Signs
Temp Pulse Resp BP Pulse Ox
98.5 F 80 15 131/82 85
12/24/24 10:31 12/24/24 11:45 12/24/24 11:45 12/24/24 11:25 12/24/24 12:05
Lab Results
12/24/24 10:56
12/24/24 10:56
Troponin I 0.122 ng/ml H* 12/24/24 10:56
Physical Exam
General: Well Developed, Well Nourished, No Apparent Distress and Comfortable
HEENT: Normocephalic, Anicteric and Moist Mucous Membranes
Respiratory: Non Labored Respirations and Other (Coarse)
Cardiac: S1/S2 and Regular Rhythm; Negative Peripheral Edema
Breast: Deferred by me
GI: Soft, Non Tender, Non Distended and Normal Bowel Sounds
Rectal: Deferred by Provider
Genito-urinary: No Costovertebral Tender
Musculoskeletal: No Cyanosis and No Edema
Skin: Warm and Dry
Neuro: AO x 3
Hematologic/Lymphatic: No Lymphadenopathy
Psych: Calm
Impression / Plan
-
I/P: 59M with hypertension, former methamphetamine abuse, COPD with exertional oxygen dependence, and current smoker who presented to the emergency department with a chief complaint of chest pain.
Outpatient pick up attendant: None prior to arrival
Acute on chronic hypoxemic respiratory failure
- At baseline requires 2 L nasal cannula with exertion, currently required 6 L nasal cannula to maintain an SpO2 of > 92%
NSTEMI
- Chest pain episode 2 hours prior to arrival, initial troponin 0.122, trend to peak
- He took ASA prior to arrival, start heparin drip with bolus
- Echocardiogram
- Cardiac catheterization
- Fasting lipid panel in a.m.
COPD with exertional oxygen dependence
- Normally uses 2 L with exertion
- On 6 L as above
- No acute wheeze, CXR pending
Hypertension
- On amlodipine�benazepril 5-20 mg daily, continue
- Hold chlorthalidone with hyponatremia
Hyperglycemia, HgbA1c pending, care per primary
Current smoker, 1-2PPD x 40 years, full cessation recommended
Prior methamphetamine abuse/IVDA, reports no recent drug use
Data Reviewed
-
EKG: Report Reviewed by me
Labs: Labs Reviewed by me
Old Records: Reviewed
--- NOTE | 2024-12-24 12:33 | HPS.HSE ---
Addendum entered and electronically signed by Edy Poole MD 12/24/24 13:34:
I saw and examined the patient.
The BENCH SHEAR OPERATOR's note was reviewed and I agree with the note.
Comment:
59-year-old male past medical history of COPD, chronic hypoxic respiratory insufficiency, tobacco abuse, primary hypertension who is presenting from home with complaints of chest pain. State of substernal severe chest pain. Pain lasted for
approximately 1 hour. Currently denies any chest pain. Denies any prior cardiac history of coronary artery disease. Uses oxygen with exertion. Denies any cough, fever, chills, nausea, vomiting.
General: Well Developed, Well Nourished and No Apparent Distress
HEENT: NormoCephalic, Moist mucous membranes and Atraumatic
Respiratory: dec bs, oxygen 2L NC
Cardiac: S1/S2 and Regular Rhythm; No Murmur or Rub
GI: Soft, Non Tender, Non Distended and Normal Bowel Sounds; No Organomegaly
Rectal: Deferred by Provider
Musculoskeletal: No Clubbing, No Cyanosis and No Edema
Skin: No Rash
Neuro: AO x 3 and Nonfocal/grossly intact
Psych: Calm
Impression
Chest pain with elevated troponin concern for NSTEMI
Mild hyponatremia likely secondary to chlorthalidone
COPD with chronic hypoxic respiratory insufficiency
Primary hypertension
Nicotine dependence
Plan
Continue to trend troponin.
Nitro as needed for chest pain
Echocardiogram pending
Chest x-ray negative for acute infiltrates
EKG noted
Check urine drug screen
Check lipid panel and A1c
Heparin drip has been started
Cardiology evaluation. May require catheterization.
Hold chlorthalidone.
start gentle IVF
If further drop in BMP then check urine studies
Continue with inhalers. Duoneb prn
DVT prophylaxis heparin drip
Full code
Admit to IVU
I spent a total of 80 minutes with the patient or on the floor. More than 50% of this time involved counseling and coordination of care.
Original Note:
Family Physician
-
Family Physician: Luis Grace
Chief Complaint
-
upper chest pain
History of Present Illness
59-year-old male with history of COPD, hypertension, smoker presenting to the emergency department with chest pain. Patient states that this morning he was walking up the steps at 9 AM when he developed upper chest tightness and pain. the pain
lasted for one hour. he does not have chest pain since he got here. denied sob. denied FERNÁNDEZ, dizzy or syncope. denied fever, chills, cough,congestion. denied abdominal pain,n,v,d. denied dysuria or hematuria.
Upon arrival he was noted to have elevated Trope. He was initiated on heparin drip. Admitted for further management
Medical History
Past Medical History
Past Medical History: Reports Other
Additional Past Medical History:
Hypertension, COPD
Past Surgical History: Reports Other
Additional Past Surgical History:
Bilateral hip replacement
Left inguinal hernia repair
L3-4 laminectomy and fusion
Social History
Tobacco: Smoker (1 pack a day)
Alcohol: None
Drug: None
Family History
Family History: Not pertinent
Allergies / Home Medications
Allergies reflects when Allergies were last updated in [facility].
Home Medications with original date entered in [facility]
Allergy/Medication List:
Allergies
Allergy/AdvReac Type Severity Reaction Status Date / Time
No Known Allergies Allergy Verified 12/24/24 10:31
Home Medications
amlodipine 5 mg-benazepril 20 mg capsule 1 cap PO DAILY Blood Pressure 04/16/24
chlorthalidone 25 mg tablet 25 mg PO DAILY Blood Pressure 05/19/24
ibuprofen 200 mg tablet 400 mg PO DAILYPRN PRN mild pain 05/19/24
omeprazole 20 mg capsule,delayed release 20 mg PO DAILY Gastrointestinal Issue 05/19/24
umeclidinium 62.5 mcg-vilanterol 25 mcg/actuation powdr for inhalation (Anoro Ellipta) 1 inh inhalation R DAILY Lung/Breathing Issues 05/19/24
aspirin 81 mg tablet,delayed release 162 mg PO DAILYPRN PRN chest pains 12/24/24
Review of Systems
-
Constitutional: Reports No Symptoms
EENT: Reports No Symptoms
Respiratory: Reports No Symptoms
Cardiac: Reports Chest Pain
Abdomen/GI: Reports No Symptoms
: Reports No Symptoms
Musculoskeletal: Reports No Symptoms
Skin: Reports No Symptoms
Neurological: Reports No Symptoms
Endocrine: Reports No Symptoms
Hematologic/Lymphatic: Reports No Symptoms
Psych: Reports No Symptoms
Physical Exam
Vital Signs
Vital Signs
Temp Pulse Resp BP Pulse Ox
98.5 F 76 16 115/83 92
12/24/24 10:31 12/24/24 12:00 12/24/24 12:00 12/24/24 12:00 12/24/24 12:15
Physical Exam
General: Well Developed, Well Nourished and No Apparent Distress
HEENT: NormoCephalic, Moist mucous membranes and Atraumatic
Respiratory: Clear
Cardiac: S1/S2 and Regular Rhythm; No Murmur or Rub
GI: Soft, Non Tender, Non Distended and Normal Bowel Sounds; No Organomegaly
Rectal: Deferred by Provider
Musculoskeletal: No Clubbing, No Cyanosis and No Edema
Skin: No Rash
Neuro: AO x 3 and Nonfocal/grossly intact
Psych: Calm
Laboratory Results
-
12/24/24 10:56
12/24/24 10:56
Laboratory Results
Total Bilirubin 0.4 mg/dl (0.2-1.3) 12/24/24 10:56
AST 32 U/L (17-59) 12/24/24 10:56
ALT 28 U/L (0-50) 12/24/24 10:56
Alkaline Phosphatase 65 U/L (38-126) 12/24/24 10:56
Troponin I 0.122 ng/ml H* 12/24/24 10:56
Data Reviewed
-
Lab Data: Labs Reviewed by me
Impression/Plan
-
# Exertional chest pain r/o NSTEMI
- Aspirin continued
- Troponin 0.12-2
- Heparin continued
- Continue to trend Trope
-Obtain echocardiogram
- Cardiology consulted
- Chest x-ray pending
- EKG with normal sinus rhythm, nonspecific ST abnormality
# Acute hyponatremia likely from chlorthalidone
- Sodium 130
#hypertension
- continue amlodipine - benazepril
-hold chlorthalidone
#COPD
#chronic o2 dependant-uses prn
- continue Anoro Ellipta
-nebs prn
#Hx drug abuse
-recent meth use on Monday.
#GERD
-PPI continued
#Nicotine dependence
-smokes one pack daily
-Nicotine patch
#DVT prophylaxis
-heparin sq
#hypertension
--- NOTE | 2024-12-24 13:20 | EDRN ---
Dr. Poole in room w/ pt.
--- NOTE | 2024-12-24 13:32 | EDRN ---
Ptt and repeat trop drawn and sent to lab at this time.
[2024-12-24] MEDS: HEPARIN 4000 UNITS IV (13:46)
[2024-12-24] MEDS: HEPARIN 25000 UNITS/250 ML IV (13:48)
[2024-12-24 13:54] LABS: APTT 32.2 Sec (23.4-35.0)
[2024-12-24 14:06] LABS: Troponin I 2.680 ng/ml
[2024-12-24 14:14] LABS: Glycohemoglobin (HgbA1c) 5.5 % (4.0-5.9)
--- NOTE | 2024-12-24 14:29 | EDRN ---
Attempting to call report to Osbaldo PORTILLO at this time.
[2024-12-24] MEDS: NSS 1000 IV (15:21)
--- NOTE | 2024-12-24 15:35 | PTCARENOTE ---
Patient received from ED. AO x3, denies chest pain. He states chronic shortness of breath, wears 2 liters NC to go up the stairs at home. Oxygen 4 liters NC, POX 93%, lungs diminished, occasional audible wheeze. Heparin gtt 1000 units/hr. Plan of
care reviewed call wasserman in reach
[2024-12-24] MEDS: NICODERM TRANSDERMAL 21 MG TRANSDERM (17:14)
--- NOTE | 2024-12-24 18:09 | CARDSERVLU ---
Echocardiogram with [facility] completed after protocol screening completed. Allergies verified.
Patent IV site: ____lac_
IV site flushed with 0.9% NaCl pre and post administration.
Diluted bolus method utilized to enhance visualization of ventricular barksdale.
Total volume given: ___4_ mL
Patient tolerated all procedures well without complications.
[2024-12-24] MEDS: NITRO-BID 0.5 INCH TOPICAL (18:15)
[2024-12-24] MEDS: TYLENOL 650 MG PO (19:38)
[2024-12-24 19:49] LABS: APTT 29.8 Sec (23.4-35.0)
[2024-12-24 20:07] LABS: Troponin I 4.160 ng/ml
--- NOTE | 2024-12-24 23:09 | PTCARENOTE ---
Received patient at change of shift. SR on the monitor, HR in the 80s. VSS on 3L nasal cannula. Heparin running as per protocol, see documentation. No chest pain at this time. Pt complains of 3/10 headache, PRN Tylenol administered as per APR. Call
wasserman within reach.
[2024-12-24 23:19] LABS: Troponin I 3.180 ng/ml
[2024-12-25] VITALS (14 sets, daily range): BP systolic 115–157; BP diastolic 68–131; BMI 29.1
[2024-12-25] MEDS: NITRO-BID 0.5 INCH TOPICAL ×3 (00:03→12:29)
[2024-12-25 02:31] LABS: Hematocrit 40.7 % (39.0-52.0); Hemoglobin 14.3 g/dL (13.0-18.0); Mean Corp Hgb Conc. 35.1 g/dL (33.0-37.0); Mean Corpuscular Volume 89.8 fL (80.0-94.0); Platelet Count 287 10^3/uL (130-400); Red Cell Dist. Width 13.0 % (11.5-14.5)
[2024-12-25 02:48] LABS: APTT 51.2 Sec (23.4-35.0)
[2024-12-25 02:50] LABS: Blood Urea Nitrogen 17 mg/dl (9-20); Calcium 9.1 mg/dl (8.4-10.2); Carbon Dioxide 26 mmol/L (22-30); Chloride 100 mmol/L (98-107); Estimated Creatinine Clearance 112 ml/min; Glucose 114 mg/dl (70-99); HDL Cholesterol 35 mg/dl; LDL Cholesterol, Calculated 147 mg/dl; Potassium 3.7 mmol/L (3.5-5.1); Sodium 131 mmol/L (135-145); Very Low Density Lipoprotein 24 mg/dl (0-30); eGFR > 60.00
[2024-12-25] MEDS: SPIRIVA RESPIMAT 2.5 MCG 2 PUFF INH (08:03)
[2024-12-25] MEDS: STRIVERDI RESPIMAT 2 PUFF INH (08:03)
[2024-12-25] MEDS: NORVASC 5 MG PO (08:33)
[2024-12-25] MEDS: LOW STRENGTH ASPIRIN 81 MG PO (08:33)
[2024-12-25] MEDS: ZESTRIL 20 MG PO (08:33)
[2024-12-25] MEDS: PROTONIX 40 MG PO (08:33)
[2024-12-25] MEDS: NICODERM TRANSDERMAL 21 MG TRANSDERM (08:34)
[2024-12-25 09:18] LABS: APTT 69.4 Sec (23.4-35.0)
--- NOTE | 2024-12-25 09:45 | CM ---
spoke to pt in room, he is prev indep, lives in a 3 story home he rents a room there. he uses 2L o2 at home thru [employer]. no dc planning needs noted at this time, cm following
[2024-12-25] MEDS: HEPARIN 25000 UNITS/250 ML IV (10:25)
--- NOTE | 2024-12-25 11:49 | W.PN.CD ---
Today's Communication / Plan
-
Cardiac catheterization to assess coronary anatomy today.
OMT/GDMT as hemodynamics and circumstances will tolerate.
Beta bethany avoidance in the setting of stimulant use (avoid unopposed alpha agonism) as well as severe COPD.
Start atorvastatin 40 mg daily. Goal LDL < 55.
Impression / Plan
-
Impression/Plan: 59M with hypertension, methamphetamine abuse, current smoker with COPD with exertional oxygen dependence admitted with NSTEMI.
Outpatient elementary educator: None.
#NSTEMI
-Acute, threat to life.
-Chest pain episode 2 hours prior to arrival.
-Initial troponin 0.122 -->2.680 --> 4.160 --> 3.180.
-Echocardiogram shows normal myocardial function without regional wall motion abnormalities.
-Continue amlodipine, aspirin, heparin gtt. Beta bethany on hold (presumably due to COPD).
-Cardiac catheterization today to clarify coronary anatomy.
#COPD with exertional oxygen dependence
-Normally uses 2 L with exertion.
-O2 requirement down to 2LNC at rest.
-We will assess filling pressures at the time of cath.
-Continue bronchodilators.
#Hypertension
-Chronic, stable.
-Continue amlodipine, lisinopril.
-HCTZ on hold due to hyponatremia.
#Hyponatremia
-New diagnosis, currently 130-131.
-Multifactorial - could be due to drug use, thiazide diuretics, SIADH with severe lung disease, undiagnosed malignancy.
-Monitor with removal of thiazides from the equation.
#HLD
-New diagnosis.
-Total cholesterol = 206, LDL = 147, HDL = 35, Triglycerides = 124.
-Start atorvastatin 40 mg daily.
-Goal LDL < 55.
#Hyperglycemia
-New diagnosis.
-HgbA1c pending.
-Per primary.
#Current smoker
-Chronic.
-1-2PPD x 40 years.
-Cessation recommended.
#Methamphetamine abuse/IVDA
-Chronic, reports no recent drug use.
-UDS + for amphetamine/methamphetamine/marijuana.
Subjective/Interval History:
SaO2 90% on 2LNC.
No further chest pain.
DATA:
TTE, 12/24/2024:
SUMMARY
1. Normal biventricular size and systolic function. No wall motion abnormalities. Mild left ventricular hypertrophy.
2. Aortic valve sclerosis without stenosis.
3. No pericardial effusion.
4. No prior study available for comparison.
Physical Exam
Vital Signs/Labs
Vital Signs
Temp Pulse Resp BP Pulse Ox
36.8 C 88 18 129/80 90
12/25/24 11:16 12/25/24 11:16 12/25/24 11:16 12/25/24 08:33 12/25/24 11:16
12/23/24 12/24/24 12/25/24
11:59 11:59 11:59
Actual Weight 90.7 kg 89.2 kg
12/25/24 02:18
12/25/24 02:18
APTT 69.4 Sec (23.4-35.0) H 12/25/24 08:56
Triglycerides 124 mg/dl (10-149) 12/25/24 02:18
LDL Cholesterol, Calc 147 mg/dl 12/25/24 02:18
VLDL Cholesterol, Calc 24 mg/dl (0-30) 12/25/24 02:18
HDL Cholesterol 35 mg/dl 12/25/24 02:18
12/24/24
10:56
Vxx-U-Flnvxsvqvfs Pept < 20.0
LAB Results
12/24/24 12/24/24 12/24/24
10:56 13:28 14:48
Troponin I 0.122 H* 2.680 H* D Cancelled
12/24/24 12/24/24 12/24/24
17:48 19:28 22:35
Troponin I Cancelled 4.160 H* D 3.180 H*
Physical Exam
Constitutional: No acute distress and Comfortable
EENT: Anicteric and Moist mucous membranes
Cardiovascular: Rhythm & rate is regular, Pedal edema is absent, JVD pressure is normal, S1S2 is normal and Murmur/rub/gallop absent
Respiratory: Respiratory effort normal and Other (Decreased throughout.)
GI: Soft, Distention absent, Flat, Non tender and Normal bowel sounds
Neuro/Psych: AO x 3
Data Reviewed
-
Date of Service: December 25, 2024
Medical Decision Making: Reviewed Test Results, Independent Historian Assessment and Test Interpretation
EKG: Tracing Personally Visualized and interpreted and Report Reviewed by me
Echo: Report Reviewed by me
X-Ray/CT/US/MRI/NUC/PET: Image Personally Visualized and interpreted and Report Reviewed by me
Labs: Labs Reviewed by me
Old Records: Reviewed
--- NOTE | 2024-12-25 13:44 | W.PN.HOSP.TC ---
Today's Communication/Plan
-
Monitor vital signs see plan
Continue with IV heparin
Cardiology to see today
Continue aspirin
Assessment / Plan
Assessment / Plan
General: Well Developed, Well Nourished and No Apparent Distress
HEENT: NormoCephalic, Moist mucous membranes and Atraumatic
Respiratory: dec bs, oxygen 2L NC
Cardiac: S1/S2 and Regular Rhythm; No Murmur or Rub
GI: Soft, Non Tender, Non Distended and Normal Bowel Sounds
Musculoskeletal: No Edema
Neuro: AO x 3 and Nonfocal/grossly intact
Psych: Calm
Exertional chest pain r/o NSTEMI
- Aspirin continued
Trope peaked at 4.1
- Heparin continued
Echo 12/24 with preserved EF
Cardiology following
Catheterization per cardiology
- Chest x-ray without acute finding
- EKG with normal sinus rhythm, nonspecific ST abnormality
A1c 5.5
# Acute hyponatremia likely from chlorthalidone
- Sodium 131; monitor
#hypertension
- continue amlodipine - benazepril
-hold chlorthalidone
#COPD
#chronic o2 dependant-uses prn
- continue Anoro Ellipta
-nebs prn
#Hx drug abuse
-recent meth use on Monday.
UDS positive for amphetamines, marijuana
#GERD
-PPI continued
#Nicotine dependence
-smokes one pack daily
-Nicotine patch
#DVT prophylaxis
-heparin
Anticipated Discharge: 24 - 48 hours
Subjective/Interval History
-
Date of Service: December 25, 2024
Denies chest pain
Objective Data
-
Labs:
Laboratory Results
12/25/24 12/25/24 12/25/24
02:18 08:56 16:00
WBC 6.6
Hgb 14.3
Hct 40.7
Plt Count 287
APTT 51.2 H 69.4 H Pending
Sodium 131 L
Potassium 3.7
Chloride 100
Carbon Dioxide 26
BUN 17
Creatinine 0.7
Glucose 114 H
Calcium 9.1
Vital Signs:
Vital Signs
Temp Pulse Resp BP Pulse Ox
98.2 F 77 18 125/90 90
12/25/24 11:16 12/25/24 12:29 12/25/24 11:16 12/25/24 12:29 12/25/24 11:16
I&O
12/24/24 12/25/24 12/26/24
06:59 06:59 06:59
Intake Total 805 / 805
Output Total 1200 / 1200 200 / 200
Balance -395 / -395 -200 / -200
--- NOTE | 2024-12-25 15:49 | ITS.CL.CATH ---
[facility] - Catheterization
Cardiac Catheterization
Procedure Report:
CARDIAC CATHETERIZATION REPORT
Date of Procedure: 12/25/2024
Referring: Ankush Mackenzie M.D.
INDICATION: Non-ST elevation myocardial infarction.
PROCEDURE:
1. Left heart catheterization.
2. Coronary angiography.
A total of 24 minutes of procedural/moderate sedation was utilized. An independent medical pathologist was present to assist with and help manage the patient's level of consciousness and physiologic status.
ACCESS:
1. 6 Armenian right radial artery using a modified Seldinger technique delete the.
CATHETERS:
1. 5 Armenian JR4.
2. 5 Armenian JL 3.5.
HEMODYNAMIC DATA
Weight (kg): 88.9
AO (s/d/x, mmHg): 92/69/80
LV (s/x mmHg): 98/14
AV gradient (x, mmHg): Minimal.
LEFT VENTRICULOGRAPHY: Not performed.
CORONARY ANGIOGRAPHY
Dominance: Left.
Left Main: Normal size, bifurcating vessel. There is no coronary artery disease.
LAD: Normal size vessel giving rise to 1 significant diagonal. There is a 70% lesion in the mid LAD immediately at the origin of the first diagonal. There is a 90% lesion in the mid to distal portion of the diagonal at an S-curve.
Ramus: Congenitally absent.
Circumflex: Large size, dominant vessel giving rise to 2 obtuse marginals before terminating as an LPDA. There is a 50% lesion in the proximal circumflex. There is a 60% lesion in the mid circumflex in between OM1 and OM 2. OM1 bifurcates
into a small upper and a medium sized lower branch which supplies the majority of the inferolateral wall. There is a 70% lesion in the distal portion of the lower branch of OM1.
RCA: Small size, nondominant vessel. There is a 90% lesion in the distal vessel which appears too small for intervention.
INTERVENTION(S)
None.
Closure Device: Vascular band.
Radiation (mGy): 568.64
DAP (cm2.Gy): 40.2915
Fluoroscopy time (minutes): 1.8
CONCLUSIONS
1. Left dominant circulation with a 70% lesion in the mid LAD after the origin of the first diagonal, a 90% lesion in the mid to distal portion of the diagonal at a notable S-curve, a 50% lesion in the proximal dominant circumflex followed by 60%
lesion in the mid circumflex in between OM1 and OM 2 as well as a 70% lesion in the distal portion of the lower branch of OM 2 as well as a 90% lesion in the distal nondominant right, too small for intervention.
2. Mildly elevated filling pressures (LVEDP = 14 mmHg at 88.9 kg).
RECOMMENDATIONS:
1. Expectant management after cardiac catheterization via right radial approach.
2. Limited weight bearing on the right wrist for one week.
3. OMT/GDMT as hemodynamics tolerate. This will include dual antiplatelet therapy for medical management of NSTEMI.
4. After reviewing the case in detail and with colleagues, the decision has been made to proceed with medical management to avoid multivessel PCI in the context of questionable medication adherence and substance abuse.
5. Where the patient to have recurrent chest discomfort or another event while on maximal medical therapy, consideration can be given to revascularization. I suspect that the patient's culprit lesion is the 90% diagonal lesion, but PCI of this
lesion would potentially also lead into PCI of the mid LAD lesion.
6. Aggressive secondary prevention with high-dose, high potency statin. Goal LDL <55.
7. Absolute abstinence from methamphetamines and other vasospastic drugs.
8. Referral to cardiac rehab.
Copy to: Ankush Mackenzie M.D., Luis Grace M.D.
Esau Stallworth DO, FACC, FACP
[2024-12-25] MEDS: IMDUR (EXTENDED RELEASE) 30 MG PO (16:54)
--- NOTE | 2024-12-25 18:53 | PTCARENOTE ---
~[id number]: Handoff report received from chantelle RN. Pt AOx4, NSR 70s-80s on tele, SBP 120s, 3L NC satting 96%. +2 pulses, no edema. Pt denies pain at this time. Nicotine patch applied to R arm and old one removed from L arm. Patient voids in
urinal, I/os charted. Standby assist OOB with IV pole. Patient NPO for CCL later today. PTT drawn and sent to lab, Heparin gtt titrated per protocol. All needs met at this time, call wasserman within reach.
~[id number]: Report called to CCL and patient taken via bed with CCL staff.
~[id number]: Received patient back form CCL. R radial TR band in place. VSS with post-op fluids infusing. Patient educated on limb restrictions post cath. Around 1645, Air release from TR band per protocol. Site CDI with no oozing or hematoma noted
at this time. All needs met at this time, call wasserman within reach.
~[id number]: Dr Stallworth in to see patient. TR band removed and dressing applied, site CDI and soft with no hematoma at this time. All needs met at this time, call wasserman within reach. Handoff given to nightshift RN.
[2024-12-25] MEDS: OCEAN, SALINE MIST 1 SPRAYS NASAL (19:26)
--- NOTE | 2024-12-25 20:49 | PTCARENOTE ---
Received patient at change of shift. SR on the monitor, HR in the 80s. R radial dressing CDI. Pt complained of a runny nose, PRN nasal spray administered as per order. Call wasserman within reach.
[2024-12-26 03:37] VITALS: BP 116/79
[2024-12-26 03:54] LABS: Hematocrit 41.0 % (39.0-52.0); Hemoglobin 14.1 g/dL (13.0-18.0); Mean Corp Hgb Conc. 34.4 g/dL (33.0-37.0); Mean Corpuscular Volume 89.7 fL (80.0-94.0); Platelet Count 307 10^3/uL (130-400); Red Cell Dist. Width 13.1 % (11.5-14.5)
[2024-12-26] MEDS: OCEAN, SALINE MIST 1 SPRAYS NASAL (04:09)
[2024-12-26 04:23] LABS: Blood Urea Nitrogen 17 mg/dl (9-20); Calcium 9.2 mg/dl (8.4-10.2); Carbon Dioxide 27 mmol/L (22-30); Chloride 99 mmol/L (98-107); Estimated Creatinine Clearance 79 ml/min; Glucose 118 mg/dl (70-99); Potassium 4.3 mmol/L (3.5-5.1); Sodium 131 mmol/L (135-145); eGFR > 60.00
[2024-12-26 05:54] VITALS: BMI 29.1
[2024-12-26 07:00] VITALS: BP 99/65
[2024-12-26] MEDS: STRIVERDI RESPIMAT 2 PUFF INH (07:34)
[2024-12-26] MEDS: SPIRIVA RESPIMAT 2.5 MCG 2 PUFF INH (07:34)
--- NOTE | 2024-12-26 07:35 | W.PN.UPDATE ---
Update Note
Progress Note Update
CARDIAC SURGERY ATTENDING:
It was my pleasure to review Mr. Tee Arredondo's case. He is a 59 y/o gentleman with extensive past medical history including significant COPD with chronic hypoxic respiratory insufficiency requiring home O2; he is still a current everyday
smoker (1PPD), methamphetamine abuse/IVDA (denies recent use, but UDS positive for amphetamine, methamphetamines, and marijuana), newly diagnosed hyperglycemia, newly diagnosed hyperlipidemia, and new hyponatremia. He presented to our emergency
department on 12/24/2024 with complaints of chest pain/tightness. He took 2 aspirins prior to presentation, and his chest pain resolved in transit to the ED. He was diagnosed with a non-ST myocardial infarction (CTNI 0.122 to 2.680 to 4.160 to
3.180). An echocardiogram was obtained that demonstrated normal myocardial function without any regional wall motion abnormalities and no significant valvular heart disease. He was noted to have some aortic valve sclerosis without stenosis. EKG
demonstrated normal sinus rhythm at 72 with a inferior infarct. Subsequent cardiac catheterization performed on 12/25/2024 demonstrated a left dominant coronary system with a 70% lesion in the mid LAD at the origin of the first diagonal, a 90%
lesion in the mid to distal portion of the diagonal, a 50% lesion in the proximal left circumflex and a 60% lesion in the mid circumflex as well as a 70% lesion in the distal portion of the lower branch of OM 2. He had a 90% lesion in the distal
nondominant right that was deemed too small for intervention.
I have personally reviewed his available imaging and medical history. Given the pattern of his coronary disease coupled with his significant COPD, active smoking, active/recent drug use, and other medical comorbidities. I would not recommend
surgical intervention on this patient. While his calculated STS mortality/morbidity are only 1.15/6.84% respectively, I believe this to be a drastic underrepresentation of his true operative risk. I believe there is a not insignificant chance that
this patient would require periprocedural ECMO support given his poor pulmonary function and active smoking. Also given that there is none proximal LAD disease, there is no significant true mortality benefit with surgical revascularization.
Given this patient's young chronologic age, high-risk surgery could be considered in the future should he fail other modalities of therapy.
Thank you
Ta Alves MD
[phone]
--- NOTE | 2024-12-26 07:48 | W.PN.CD ---
Today's Communication / Plan
-
Imdur to 60 mg
Plavix 600 today 75 mg tomorrow
Adamant on leaving today
Impression / Plan
-
Impression/Plan: 59M with hypertension, methamphetamine abuse, current smoker with COPD with exertional oxygen dependence admitted with NSTEMI.
Outpatient local delivery truck driver: None.
#NSTEMI
-cath below --> med management of disease
-Initial troponin 0.122 -->2.680 --> 4.160 --> 3.180.
-Echocardiogram shows normal myocardial function without regional wall motion abnormalities.
-Continue amlodipine, aspirin, heparin gtt. Beta bethany on hold (presumably due to COPD).
- cont amlodipine increase imdur to 60 mg
- start plavix loaded w/ 600 mg 75 daily starting tomorrow
#COPD with exertional oxygen dependence
-Normally uses 2 L with exertion.
-O2 requirement down to 2LNC at rest.
-We will assess filling pressures at the time of cath.
-Continue bronchodilators.
#Hypertension
-Chronic, stable.
-Continue amlodipine, lisinopril.
-HCTZ on hold due to hyponatremia.
#Hyponatremia
-New diagnosis, currently 130-131.
-Multifactorial - could be due to drug use, thiazide diuretics, SIADH with severe lung disease, undiagnosed malignancy.
-Monitor with removal of thiazides from the equation.
#HLD
-New diagnosis.
-Total cholesterol = 206, LDL = 147, HDL = 35, Triglycerides = 124.
-Start atorvastatin 40 mg daily.
-Goal LDL < 55.
#Hyperglycemia
-New diagnosis.
-HgbA1c pending.
-Per primary.
#Current smoker
-Chronic.
-1-2PPD x 40 years.
-Cessation recommended.
#Methamphetamine abuse/IVDA
-Chronic, reports no recent drug use.
-UDS + for amphetamine/methamphetamine/marijuana.
Subjective/Interval History:
No CP
adamant on leaving today
DATA:
TTE, 12/24/2024:
SUMMARY
1. Normal biventricular size and systolic function. No wall motion abnormalities. Mild left ventricular hypertrophy.
2. Aortic valve sclerosis without stenosis.
3. No pericardial effusion.
4. No prior study available for comparison.
Cath 12/25/24
CONCLUSIONS
1. Left dominant circulation with a 70% lesion in the mid LAD after the origin of the first diagonal, a 90% lesion in the mid to distal portion of the diagonal at a notable S-curve, a 50% lesion in the proximal dominant circumflex followed by 60%
lesion in the mid circumflex in between OM1 and OM 2 as well as a 70% lesion in the distal portion of the lower branch of OM 2 as well as a 90% lesion in the distal nondominant right, too small for intervention.
2. Mildly elevated filling pressures (LVEDP = 14 mmHg at 88.9 kg).
Physical Exam
Vital Signs/Labs
Vital Signs
Temp Pulse Resp BP Pulse Ox
98 F 89 20 116/79 94
12/26/24 06:58 12/26/24 05:45 12/26/24 06:58 12/26/24 03:37 12/26/24 06:58
12/25/24 12/26/24 12/27/24
06:59 06:59 06:59
Actual Weight 196 lb 10.437 oz 196 lb 10.437 oz
12/26/24 03:43
12/26/24 03:43
APTT Cancelled 12/25/24 16:00
Triglycerides 124 mg/dl (10-149) 12/25/24 02:18
LDL Cholesterol, Calc 147 mg/dl 12/25/24 02:18
VLDL Cholesterol, Calc 24 mg/dl (0-30) 12/25/24 02:18
HDL Cholesterol 35 mg/dl 12/25/24 02:18
12/24/24
10:56
Xav-I-Oiyjxiwtjct Pept < 20.0
LAB Results
12/24/24 12/24/24 12/24/24
10:56 13:28 14:48
Troponin I 0.122 H* 2.680 H* D Cancelled
12/24/24 12/24/24 12/24/24
17:48 19:28 22:35
Troponin I Cancelled 4.160 H* D 3.180 H*
Physical Exam
Constitutional: No acute distress and Comfortable
EENT: Anicteric
Cardiovascular: Rhythm & rate is regular and Pedal edema is absent
Respiratory: Respiratory effort normal and Lungs clear to auscul.
GI: Soft
Neuro/Psych: AO x 3
Other: Cath Site (c/d/i)
Data Reviewed
-
Date of Service: December 26, 2024
Medical Decision Making: Reviewed Test Results
EKG: Tracing Personally Visualized and interpreted (sr)
Echo: Report Reviewed by me
Labs: Labs Reviewed by me
[2024-12-26] MEDS: NICODERM TRANSDERMAL 21 MG TRANSDERM (08:15)
[2024-12-26] MEDS: PLAVIX 600 MG PO (08:15)
[2024-12-26] MEDS: LOW STRENGTH ASPIRIN 81 MG PO (08:16)
[2024-12-26] MEDS: IMDUR (EXTENDED RELEASE) 30 MG PO (08:16)
[2024-12-26] MEDS: PROTONIX 40 MG PO (08:16)
[2024-12-26] MEDS: NORVASC 5 MG PO (08:16)
[2024-12-26] MEDS: ZESTRIL 20 MG PO (08:16)
[2024-12-26 08:28] VITALS: BP 117/83
--- NOTE | 2024-12-26 10:17 | PTCARENOTE ---
Assumed care at 0700, patient comfortable, denies pain or shortness of breath. VSS, right radial site CDI. NSR, call wasserman in reach
[2024-12-26 11:22] VITALS: BP 107/77
--- NOTE | 2024-12-26 12:59 | W.PN.HOSP.TC ---
Addendum entered and electronically signed by Jt David MD 12/26/24 13:13:
Time of discharge 38 minutes
Original Note:
Today's Communication/Plan
-
Monitor vital signs see plan
Discussed with cardiology, they are okay with patient being discharged
Continue with aspirin and Plavix
Continue Imdur
Discussed compliance with medication and to stop using amphetamines
Assessment / Plan
Assessment / Plan
General: Well Developed, Well Nourished and No Apparent Distress
HEENT: NormoCephalic, Moist mucous membranes and Atraumatic
Respiratory: dec bs, oxygen 2L NC
Cardiac: S1/S2 and Regular Rhythm; No Murmur or Rub
GI: Soft, Non Tender, Non Distended and Normal Bowel Sounds
Musculoskeletal: No Edema
Neuro: AO x 3 and Nonfocal/grossly intact
Psych: Calm
Exertional chest pain Secondary to NSTEMI
- Aspirin continued, Now also on Plavix
Trope peaked at 4.1
DC further heparin
Echo 12/24 with preserved EF
Cardiology following
Status post cardiac catheterization with CAD, given patient use of drug use, this is being managed medically at this time. Patient was also seen by CT surgery and not a surgical candidate.
- Chest x-ray without acute finding
- EKG with normal sinus rhythm, nonspecific ST abnormality
A1c 5.5
Also started on Imdur which is increased to 60 mg p.o. daily.
Patient is adamant about leaving even if it is AMA. Discussed with cardiology and will discharge patient home with close follow-up outpatient. Importance of compliance was discussed with patient.
# Acute hyponatremia likely from chlorthalidone
- Sodium 131; monitor
#hypertension
- continue amlodipine
-DC further chlorthalidone
#COPD
#chronic o2 dependant-uses prn
- continue Anoro Ellipta
-nebs prn
#Hx drug abuse
-recent meth use on Monday.
UDS positive for amphetamines, marijuana
#GERD
-PPI continued
#Nicotine dependence
-smokes one pack daily
-Nicotine patch
#DVT prophylaxis
Anticipated Discharge: Today
Subjective/Interval History
-
Date of Service: December 26, 2024
Denies chest pain at this time
Objective Data
-
Labs:
Laboratory Results
12/26/24
03:43
WBC 6.8
Hgb 14.1
Hct 41.0
Plt Count 307
Sodium 131 L
Potassium 4.3
Chloride 99
Carbon Dioxide 27
BUN 17
Creatinine 1.0
Glucose 118 H
Calcium 9.2
Vital Signs:
Vital Signs
Temp Pulse Resp BP Pulse Ox
97.7 F 85 20 107/77 90
12/26/24 11:24 12/26/24 12:15 12/26/24 11:24 12/26/24 11:22 12/26/24 11:24
I&O
12/25/24 12/26/24 12/27/24
06:59 06:59 06:59
Intake Total 805 / 805
Output Total 1200 / 1200 650 / 650
Balance -395 / -395 -650 / -650
--- NOTE | 2024-12-26 13:12 | W.DCSUMMARY ---
Discharge Summary
Discharge Data
Date of Admission: 12/24/24
Date of Discharge: 12/26/24
-
Pending Results: No
Hospital Course
59-year-old male with past medical history of hypertension, COPD, drug use, recent methamphetamine use, GERD, nicotine dependence came to the hospital with exertional chest pain with non-ST elevation myocardial infarction. Patient was put on IV
heparin and was seen by cardiology. Echocardiogram showed preserved EF. Patient underwent cardiac catheterization which showed significant coronary artery disease which per cardiology recommendation patient was being treated medically. CT surgery
was also consulted and they thought patient is not a surgical candidate. Patient symptoms were managed medically with medications. Patient was started on aspirin, Plavix and Imdur. Patient chlorthalidone was discontinued on this hospitalization.
On 12/26, cardiology deemed patient to be discharged home with close instructions to follow-up with them. Patient was also instructed to follow-up with PCP outpatient.
Discharge Plan
-
Patient Disposition: Home (Routine Discharge)
Discharge Diagnosis/Procedures: Non-ST elevation myocardial infarction
COPD
Hyponatremia
Hyperlipidemia
Condition: Fair
Diet: As tolerated
Activity: As tolerated
Driving Restrictions: As prior to admission
Bathing Restrictions: None
Stand Alone Forms: DC Instructions- Cath/EP Lab
Referrals:
Marilee Antonio CRNP [Specified Professional Personl, Cardiology] - 01/22/25 8:40 am
Luis Grace MD [Family Provider, Family Practice] - in less than 1 week
Prescriptions:
New
atorvastatin 40 mg Tablet
40 mg PO QPM Qty: 30 0RF
acetaminophen 325 mg Tablet
650 mg PO Q6HPRN PRN (Reason: mild pain/ fever>100.5F) Qty: 0 0RF
lisinopril 20 mg Tablet
20 mg PO DAILY Qty: 30 0RF
amlodipine 5 mg Tablet
5 mg PO DAILY Qty: 30 0RF
isosorbide mononitrate 60 mg Tablet Extended Release 24 Hr
60 mg PO DAILY Qty: 30 0RF
nicotine 21 mg/24 hr Patch 24 Hour
21 mg transdermal DAILY Qty: 30 0RF
nitroglycerin 0.4 mg Tablet, Sublingual
0.4 mg sublingual [id number] PRN (Reason: chest pain) Qty: 30 0RF
aspirin 81 mg Tablet,Chewable
81 mg PO DAILY Qty: 30 0RF
clopidogrel 75 mg Tablet
75 mg PO DAILY Qty: 30 0RF
Continued
ibuprofen 200 mg Tablet
400 mg PO DAILYPRN PRN (Reason: mild pain)
omeprazole 20 mg Capsule,Delayed Release(Dr/Ec)
20 mg PO DAILY
umeclidinium-vilanterol [Anoro Ellipta] 62.5-25 mcg/actuation Blister With Device
1 inh INHALATION R DAILY
Discontinued
amlodipine-benazepril 5-20 mg capsule
1 cap PO DAILY
chlorthalidone 25 mg Tablet
25 mg PO DAILY
aspirin 81 mg Tablet,Delayed Release (Dr/Ec)
162 mg PO DAILYPRN PRN (Reason: chest pains)
Patient Comments:
not taking
Discharge Orders:
Discharge Patient (As Directed); Ordered 12/26/24
Ordered By: Jt David
Care Plan Goals
Care Plan Goals:
Problem: Readiness for enhanced knowledge related to diagnosis and treatment plan
Goal: Understand your diagnosis and treatment plan needs, including medications if applicable.
Instructions: Know your diagnosis, underlying causes and treatment plan options, including medications if applicable. Consult with your health care team to learn about your diagnosis and treatment plan, including medications if applicable.
Discharge Date and Time
Discharge Date/Time: 12/26/24 14:52
Print Language: MICRONESIAN
--- NOTE | 2024-12-26 15:03 | PTCARENOTE ---
Patient discharged to home. Discharge teaching provided. Patient verbalized understanding. Friend picking him up today. Escorted to main lobby in a wheelchair.
== END 2024-12-26 14:52 | disposition home or self-care (01) | DRG 281 ==
LOC: IVU 13:14
PROVIDERS: Internal Medicine Cardiovascular Disease; Registered Nurse; ADMITTING PHYSICIAN Hospitalist; ATTENDING PHYSICIAN Internal Medicine; CONSULT PHYSICIAN Internal Medicine Cardiovascular Disease; EMERGENCY PHYSICIAN Student in an Organized Health Care Education/Training Program; FAMILY PHYSICIAN Family Medicine
PROC: 4A023N7 Measurement of Cardiac Sampling and Pressure, Left Heart, Percutaneous Approach (ICD-10-PCS; 2024-12-25)
PROC: B2111ZZ Fluoroscopy of Multiple Coronary Arteries using Low Osmolar Contrast (ICD-10-PCS; 2024-12-25)
DX: I21.4 Non-ST elevation (NSTEMI) myocardial infarction (principal); E87.1 Hypo-osmolality and hyponatremia; J44.9 Chronic obstructive pulmonary disease, unspecified; E78.5 Hyperlipidemia, unspecified; R09.02 Hypoxemia; I10 Essential (primary) hypertension; Z99.81 Dependence on supplemental oxygen; F17.210 Nicotine dependence, cigarettes, uncomplicated; K21.9 Gastro-esophageal reflux disease without esophagitis; I25.10 Atherosclerotic heart disease of native coronary artery without angina pectoris; Z82.49 Family history of ischemic heart disease and other diseases of the circulatory system; Z79.899 Other long term (current) drug therapy; Z96.643 Presence of artificial hip joint, bilateral; F15.11 Other stimulant abuse, in remission
CPT/HCPCS: 71046; 80048; 80053; 80061; 80306; 80307; 83036; 83880; 84484; 85025; 85027; 85730; 87070; 93005; 93306; 93458; 94640; 96365; 99152; 99153; 99291; C1769; C1894; Q9950; Q9967